=== PATIENT | female | born 1970 | race Caucasian/White ===

== ENCOUNTER → 2020-03-04 12:14 | Outpatient (BNVA) | payer BC, SELFPAY | PROVIDERS: Family Provider Nurse Practitioner Family; PCP Nurse Practitioner Family; Visit Provider Family Medicine | DX: E11.9 Type 2 diabetes mellitus without complications (principal); R61 Generalized hyperhidrosis; Z12.31 Encounter for screening mammogram for malignant neoplasm of breast; F32.4 Major depressive disorder, single episode, in partial remission; I10 Essential (primary) hypertension; N63.0 Unspecified lump in unspecified breast | CPT/HCPCS: 80053; 80061; 83036; 84443 ==

== ENCOUNTER → 2020-05-19 12:01 | Outpatient (BNVA) | payer OTHER, SELFPAY | PROVIDERS: Family Provider Nurse Practitioner Family; PCP Nurse Practitioner Family; Visit Provider Nurse Practitioner Family | DX: Z20.828 Contact with and (suspected) exposure to other viral communicable diseases (principal) | CPT/HCPCS: 87635 ==

== ENCOUNTER → 2020-09-30 15:10 | Outpatient (BNVA) | payer OTHER, SELFPAY | PROVIDERS: Family Provider Nurse Practitioner Family; PCP Nurse Practitioner Family; Visit Provider Nurse Practitioner Family | DX: Z20.828 Contact with and (suspected) exposure to other viral communicable diseases (principal); J98.8 Other specified respiratory disorders | CPT/HCPCS: 87635 ==

== ENCOUNTER → 2020-11-04 10:17 | Outpatient (BNVA) | payer SELFPAY | PROVIDERS: Family Provider Nurse Practitioner Family; PCP Nurse Practitioner Family; Visit Provider Family Medicine | DX: I10 Essential (primary) hypertension (principal); F32.9 Major depressive disorder, single episode, unspecified; E55.9 Vitamin D deficiency, unspecified; E11.9 Type 2 diabetes mellitus without complications; R07.89 Other chest pain; R07.9 Chest pain, unspecified; I25.119 Atherosclerotic heart disease of native coronary artery with unspecified angina pectoris; Z68.35 Body mass index [BMI] 35.0-35.9, adult; F17.210 Nicotine dependence, cigarettes, uncomplicated | CPT/HCPCS: 80053; 80061; 83036; 84443 ==

== ENCOUNTER 2020-12-11 08:06 | Outpatient (CLI) | payer SELFPAY ==
[2020-12-11 08:12] VITALS: BMI 35.2
--- NOTE | 2020-12-11 08:28 | ECG_ITS ---
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 The perfusion scan will be documented separately. DATA: Baseline heart rate was 73 beats per minute. Baseline blood pressure was 166/97 millimeters of mercury. Target heart rate was 170. Maximum heart rate achieved was 112. which was 65 % of the predicted target heart rate. Maximum blood pressure was 176/97 millimeters of mercury. The reason for ending the test was completion of the protocol. The patient did not experience any symptoms. ELECTROCARDIOGRAM: BASELINE: Sinus rhythm. Normal axis. Left ventricle hypertrophy, nonspecific inferolateral ST changes After Lexiscan injection, no ST-T changes suggestive of ischemic noted. No arrhythmia noted. CONCLUSION: Please note due to baseline abnormality of the EKG specificity and sensitivity of the EKG portion of LexiScan MIBI stress test will be low 1. EKG not suggestive of ischemia 2. Lexiscan injection unremarkable. 3. Perfusion scan will be documented separately. Electronically Signed On 12-11-2020 20:48:59 CDT by ANABEL DEGROOT [id number]
--- NOTE | 2020-12-11 08:29 | NMCV_ITS ---
NM russell perf SPECT r/s* [id number] Nalini Vieyra Age: 50 Gender: F : 1970 Exam Date: 12/11/2020 09:23 Ordering Phys: Izzy Degroot MD ([email or web address]) Technologist: COLIN Xavier Exam Location: [facility] Indications: CP, SOB STRESS TEST [facility] IMAGE PROTOCOL Rest/Stress 1 Lexiscan Day Radiopharmaceutical Dose (mCi) Administration Site Administered by Rest: Tc-99m 10.7 IV COLIN Xavier Sestamibi Stress:Tc-99m 32.7 IV COLIN Jon Sestamibi Rest: 11-Dec-2020 60 Discovery 630 Stress: 11-Dec-2020 45 Discovery 630 0.4mg Lexiscan. Images obtained in supine and prone position. SPECT RESULTS Technical Quality: Good Raw Data Analysis: Breast attenuation Image Corrections: No attenuation or motion correction applied Summed Stress Score: 0 Summed Rest Score: 1 Summed Difference Score: 0 PERFUSION FINDINGS Large area of patchy decreased tracer uptake noted in basal to distal anterior wall on both rest and stress images which showed medium-sized area of moderate reversibility in mid to distal segment suggestive of old myocardial infarction surrounded by medium-sized area for moderate ischemia in LAD segment. FUNCTIONAL RESULTS (calculated via Gated SPECT) Stress Image LV EF (%): 56 Stress EDV (mL):124 TID: 0.91 Stress ESV (mL):55 Rest Image LV EF (%): 56 FUNCTIONAL FINDINGS: There is normal left ventricular systolic function. IMPRESSIONS Large area of possible old myocardial infarction versus scarring noted in basal to distal anterior wall surrounded by medium-sized area of moderate ischemia in the LAD territory. No significant wall motion abnormality. Cannot rule out artifact. Clinical correlation advised. EKG segment will be documented separately. Izzy Degroot MD (Electronically Signed) Final Date: 15 December 2020 09:53 S
[2020-12-11] MEDS: regadenoson 0.4 Mg/5 ml Syringe IVP (10:15)
[2020-12-11 10:16] VITALS: BP 176/94; PULSE 100
== END 2020-12-11 08:07 | disposition home or self-care (01) ==
LOC: CDL 08:09
PROVIDERS: PCP Family Medicine; Visit Provider Internal Medicine Cardiovascular Disease
DX: R07.9 Chest pain, unspecified (principal); I25.9 Chronic ischemic heart disease, unspecified
CPT/HCPCS: 78452; 93017; A9500; J2785

== ENCOUNTER 2020-12-16 12:47 | Inpatient (IN) | payer SELFPAY ==
[2020-12-16] VITALS (12 sets, daily range): BP systolic 140–185; BP diastolic 87–118; PULSE 73–92; RESP 14–24; TEMP 36.8; O2SAT 89–96; BMI 35.2
--- NOTE | 2020-12-16 13:14 | XRR_ITS ---
PROCEDURE INFORMATION: Exam: XR Chest Exam date and time: 12/16/2020 1:39 PM Age: 50 years old Clinical indication: Shortness of breath; Additional info: Chest TECHNIQUE: Imaging protocol: XR of the chest. Views: 1 view. COMPARISON: CR Chest 1 [place] [id number] 06/13/2018 10:59 AM FINDINGS: Lungs: There is no pulmonary vascular congestion. There is no evidence of focal parenchymal consolidation. Pleural spaces: There are no pleural effusions. There is no evidence of pneumothorax. Heart/Mediastinum: The cardiac silhouette is within normal limits. Bones/joints: No acute osseous abnormality is identified. XR/XR chest 1V portable [id number] IMPRESSION: No acute cardiopulmonary disease identified.
--- NOTE | 2020-12-16 13:14 | ECG_ITS ---
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1970 Requested By: Dk Zavaleta Order Number: [id number] Reading MD: ANABEL STACK Measurements Intervals [place] Rate: 91 P: 59 DE: 178 QRS: 52 QRSD: 87 T: 50 QT: 371 QTc: 458 Interpretive Statements SINUS RHYTHM POSSIBLE LEFT ATRIAL ENLARGEMENT [-0.1mV P WAVE IN V1/V2] NONSPECIFIC ST & T-WAVE ABNORMALITY Compared to ECG 06/13/2018 21:00:53 Sinus arrhythmia no longer present T-wave abnormality still present Electronically Signed On 12-16-2020 23:39:54 CDT by ANABEL STACK [id number] f
[2020-12-16 13:31] LABS: Basophils % 0.4 %; Eosinophils # 0.2 10^3/uL (0.0-0.8); Eosinophils % 2.5 %; Hemoglobin 15.4 g/dL (11.5-15.3); Lymphocytes # 3.4 10^3/uL (0.8-4.8); Lymphocytes % 36.6 %; Mean Corpuscular HGB Conc 33.5 g/dL (30.0-36.0); Mean Corpuscular Volume 89.5 fL (81-99); Mean Platelet Volume 9.7 fL (7.4-10.4); Monocytes # 0.5 10^3/uL (0.2-0.9); Neutrophils # 5.06 10^3/uL (1.8-7.7); Neutrophils % 55.3 %; Nucleated Red Blood Cells % 0 %; Platelet Count 240 10^3/cmm (130-400); Red Blood Count 5.14 10^6/uL (4.1-5.3); Red Cell Distribution Width 12.8 % (12.1-15.1); White Blood Count 9.2 10^3/uL (4.0-10.0)
[2020-12-16 13:56] LABS: Alanine Aminotransferase 46 U/L (0-33); Albumin Level 4.5 g/dL (3.5-5.2); Alkaline Phosphatase 94 IU/L (35-105); Anion Gap 16.4 (5-19); Aspartate Amino Transferase 38 U/L (0-32); Blood Urea Nitrogen 10 mg/dL (6-20); Calcium 8.8 mg/dL (8.5-10.5); Carbon Dioxide 24 mmol/L (22-29); Chloride 103 mmol/L (98-107); Glomerular Filtration Rate 88.6 mL/min (90-130); Glucose 188 mg/dL (65-115); Osmolality Calculated 292 mOsm/kg (285-295); Potassium 4.4 mmol/L (3.5-5.1); Sodium 139 mmol/L (136-145); Total Bilirubin 0.3 mg/dL (0.15-1.2); Total Protein 6.5 g/dL (6.6-8.7)
[2020-12-16 13:57] LABS: Troponin(5th) Baseline 9 ng/L (0-10)
[2020-12-16] MEDS: aspirin 81 mg Chew Tablet 324 MG PO (14:05)
[2020-12-16] MEDS: nitroglycerin 1 gm/inch oint Pkt 1 INCH TOPICAL ×2 (14:05→21:16)
[2020-12-16] MEDS: enoxaparin 100 mg/mL Syringe 90 MG SUBCUT (14:05)
[2020-12-16] MEDS: metoprolol tartrate 25 mg Tablet PO (14:06)
--- NOTE | 2020-12-16 14:26 | ED_ITS ---
HPI - Chest Pain General: Chief Complaint: Chest Pain Stated Complaint: CP, SOB Time Seen by Provider: 12/16/20 13:03 History of Present Illness: HPI narrative: 50-year-old female with a history of diabetes and known history of coronary disease. Last week she had a stress test reviewing the old records it looks like it was positive with some areas of ischemia about the old infarct. 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 Eventually she took a nitro she went to her primary care doctor's office and took another nitro while there after the second nitro she had relief of her chest pain. She is advised to present to the emergency room. After reviewing her stress test and her history she was given aspirin 325 mg as well as Lovenox and an extra dose of metoprolol as she was still mildly tachycardic. Additionally she was given topical nitro. She is resting comfortably now with no chest pain. MD complaint: chest pain Pertinent past history: coronary artery disease, prior [place] and [employer] Onset (ago): hour(s) Timing of current episode: episodic Prior episodes: Yes Onset: during rest Pain location: substernal and left chest Pain radiation: neck and left shoulder Severity: moderate Quality: tightness, aching and heaviness Relieving factors: nitroglycerin and rest Exacerbating factors: exertion Associated symptoms: Reports dyspnea and nausea; Deny abdominal pain, diaphoresis, fever(s), leg edema, palpitations, sense of impending doom, syncope or vomiting Treatment prior to arrival: nitroglycerin Review of Systems Const: Denies: fever(s) or diaphoresis ENMT: Denies: throat pain, ear or mastoid pain, nasal discharge or nasal congestion Card: Denies: palpitations or syncope Resp: Reports: dyspnea GI: Reports: nausea; Denies: abdominal pain or vomiting : Denies: flank pain, difficulty voiding, dysuria, urinary frequency or urinary urgency Skin/Breast: Denies: rash or pruritus PFSH ED PFSH: Medical History Chest pain due to CAD Coronary artery disease stent to LAD and RCA 04/2016 RUSS Martin Diabetes Essential hypertension GERD (gastroesophageal reflux disease) History of TIA (transient ischemic attack) Myocardial infarction Smoking addiction Family History Father Hypertension CAD (coronary artery disease), Onset Age: 32 [place] and CABG Diabetes Brother CAD (coronary artery disease), Onset Age: 31 [place] Sister Family history of premature coronary artery disease Hypothyroidism Social History Smoking and tobacco status: current some day smoker cigarettes Packs smoked per day: 1 Years cigarettes smoked: 20 Second hand smoke exposure: Yes Alcohol intake: never Household members: spouse Marital status: Current occupational status: employed History of recent travel: No Current gender identity: Female Physical Exam Const: COMMON NORMALS: no acute distress GENERAL APPEARANCE: cooperative and comfortable ORIENTATION/CONSCIOUSNESS: Yes awake, Yes oriented to person, Yes oriented to place and Yes oriented to time Eye: COMMON NORMALS: Equal, round and reactive pupils present, EOMs intact bi laterally, conjunctivae normal and no scleral icterus CONJUNCTIVA: Yes conjunctivae normal PUPIL: Yes Equal, round and reactive pupils present Neck/C-Spine: COMMON NORMALS: full ROM, no lymphadenopathy, supple and no JVD Lymph: LYMPHATIC: no lymphadenopathy noted and no lymphedema noted Resp: COMMON NORMALS: normal respiratory effort, No retractions, No use of accessory muscles and clear to auscultation bilaterally AUSCULTATION: clear to auscultation bilaterally Cardio: COMMON NORMALS: no JVD, regular rate, regular rhythm and No murmurs present (Cardio) RATE: regular rate RHYTHM: regular rhythm GI: COMMON NORMALS: Soft to palpation and No hepatosplenomegaly present AUSCULTATION: Yes normoactive bowel sounds PALPATION: Yes Soft to palpation, No Tenderness to palpation present (GI), No Guarding due to palpation present (GI) and Yes No hepatosplenomegaly present Extremity: COMMON NORMALS: normal to inspection, capillary refill normal, no clubbing, cyanosis or edema, no calf tenderness and no pedal edema Neuro: SENSORIUM/ORIENTATION: Yes oriented to person, Yes oriented to place and Yes oriented to time Skin: COMMON NORMALS: no rashes or lesions noted GENERAL SKIN EXAM: no rashes or lesions noted Course Vital Signs: Vital signs: Vital Signs Temperature 98.6 F 12/17/20 12:16 Pulse Rate 58 L 12/17/20 12:16 Respiratory Rate 19 H 12/17/20 12:16 Blood Pressure 121/90 12/17/20 12:16 Pulse Oximetry 92 12/17/20 12:16 MDM - Chest Pain MDM Narrative: Medical decision making narrative: Patient having unstable angina had a recent positive stress test will admit given aspirin Lovenox Nitropaste for blood pressure consult cardiology orders have been written Lab Data: Attestation: I reviewed the patient's lab results. Labs: Lab Results 12/16/20 12/16/20 12/16/20 Range/Units 13:20 13:20 13:20 WBC 9.2 (4.0-10.0) 10^3/ uL RBC 5.14 (4.1-5.3) 10^6/u L Hgb 15.4 H (11.5-15.3) g/dL Hct 46.0 (37.0-47.0) % MCV 89.5 (81-99) fL MCH 30.0 (28.0-34.0) pg MCHC 33.5 (30.0-36.0) g/dL RDW 12.8 (12.1-15.1) % Plt Count 240 (130-400) 10^3/c mm MPV 9.7 (7.4-10.4) fL Neut % (Auto) 55.3 % Lymph % (Auto) 36.6 % Crowley % (Auto) 5.0 % Eos % (Auto) 2.5 % Baso % (Auto) 0.4 % Neut # (Auto) 5.06 (1.8-7.7) 10^3/u L Lymph # (Auto) 3.4 (0.8-4.8) 10^3/u L Crowley # (Auto) 0.5 (0.2-0.9) 10^3/u L Eos # (Auto) 0.2 (0.0-0.8) 10^3/u L Baso # (Auto) 0.0 (0.0-0.1) 10^3/u L Nucleated RBC % (a uto) 0 % Nucleated RBCs # 0.0 /100WBC Sodium 139 (136-145) mmol/L Potassium 4.4 (3.5-5.1) mmol/L Chloride 103 (98-107) mmol/L Carbon Dioxide 24 (22-29) mmol/L Anion Gap 16.4 (5-19) BUN 10 (6-20) mg/dL Creatinine 0.7 (0.5-0.9) mg/dL GFR Calculation 88.6 L (90-130) mL/min Glucose 188 H (65-115) mg/dL Calculated Osmolal ity 292 (285-295) mOsm/k g Calcium 8.8 (8.5-10.5) mg/dL Total Bilirubin 0.3 (0.15-1.2) mg/dL AST 38 H (0-32) U/L ALT 46 H (0-33) U/L Alkaline Phosphata se 94 (35-105) IU/L Troponin T Baselin e 9 (0-10) ng/L Total Protein 6.5 L (6.6-8.7) g/dL Albumin 4.5 (3.5-5.2) g/dL Globulin 2.0 (1.3-4.6) g/dL Discharge Plan Discharge Patient Disposition: Home Clinical Impression: Unstable angina pectoris, Diabetes, Abnormal stress test, Coronary artery disease Condition: Stable Discharge Orders: Discharge Order (Routine); Ordered 12/17/20 Ordered By: Trice Ortega Discharge Diet: Usual diet and Cardiac Discharge Activity: Resume usual activity Coding Level of Care Code 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
--- NOTE | 2020-12-16 15:14 | ECG_ITS ---
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
--- NOTE | 2020-12-16 15:41 | P.HP_ITS ---
Providers/Chief Complaint Admitting Physician: Trice Ortega MD Primary Care Provider: Shital Capps MD Chief Complaint: CP, SOB History of Present Illness Nalini Vieyra is a 50 year old female with a past medical history of hypertension, which is poorly controlled, diabetes, chronic smoking, following with cardiology as an outpatient for chest pain, underwent stress test on December 11, 2020 which showed a large area of possible old [place] versus scarring in the basal to distal anterior wall surrounded by medium area of moderate ischemia in the LAD territory. She presented today with sudden onset chest pain that started at rest. Described as a sensation of squeezing chest pain, 6-7 in intensity, radiating upwards to her jaw, relieved with nitroglycerin. Stated feeling short of breath while the episode was happening. Past history of CAD present. EKG with non specific ST-T wave changes. Baseline troponin at 9 Review of Systems General: Reports: 10 or more systems reviewed and unremarkable except in HPI and below Const: Denies: fever(s), chills or body aches Eyes: Denies: change in vision, blurry vision or photophobia ENMT: Reports: hoarseness; Denies: throat pain, enlarged tonsils, odynophagia or nasal congestion Card: Denies: chest pain, palpitations, irregular heart rhythm, edema, swelling of feet/ankles, lightheadedness, pre-syncope, dyspnea on exertion or orthopnea Resp: Denies: dyspnea, productive cough, non-productive cough, wheezing, strid or, pain on inspiration, change in phlegm color, hemoptysis or chest congestion GI: Denies: abdominal pain, nausea, vomiting, hematemesis, coffee ground emesis, dysphagia, heartburn, diarrhea, constipation, GI cramping, change in stool character, hematochezia or melena : Denies: flank pain, difficulty voiding, dysuria, urinary frequency, urinary urgency, urinary hesitancy or hematuria Musc: Denies: neck pain, back pain, extremity pain, joint swelling, joint warmth or deformity Neuro: Denies: headache(s), numbness in extremities, weakness in extremities, sensory changes, difficulty walking, frequent falls, dizziness, vertigo, behavioral changes, Slurred speech present or seizure-like activity Psych: Denies: anxiety, depression, suicidal ideation or homicidal ideation Endo: Denies: polyuria, polydipsia, tired all the time, cold intolerance or hot flashes Robbie/Lymph: Denies: easy bruising or easy bleeding Medications/Allergies Home Medications Medication Instructions Recorded Confirmed Last Taken Type nitroglycerin 0.4 mg sublingual See Rx Instructions .ROUTE 11/04/20 12/16/20 12/16/20 Rx tablet .COMPLEX #25 tab cyclobenzaprine 10 mg tablet See Rx Instructions PO TID PRN #20 11/14/20 12/16/20 Unknown Rx tab Lexapro 20 mg PO DAILY@219912/16/20 12/16/20 12/15/20 History aspirin 81 mg PO DAILY@219912/16/20 12/16/20 12/15/20 History atorvastatin 40 mg PO DAILY@219912/16/20 12/16/20 12/15/20 History clopidogrel 75 mg PO DAILY@12/16/20 12/16/20 12/16/20 History empagliflozin [Jardiance] 25 mg PO DAILY@12/16/20 12/16/20 12/16/20 History ergocalciferol (vitamin D2) 1,250 mcg PO Q7D 12/16/20 12/16/20 12/14/20 History glipizide 10 mg PO BID@12/16/20 12/16/20 12/16/20 History isosorbide mononitrate 15 mg PO BID@12/16/20 12/16/20 12/16/20 History metformin 1,000 mg PO BID@12/16/20 12/16/20 12/16/20 History metoprolol succinate 100 mg PO DAILY@219912/16/20 12/16/20 12/15/20 History montelukast 10 mg PO DAILY@219912/16/20 12/16/20 12/15/20 History oxybutynin chloride 15 mg PO DAILY@219912/16/20 12/16/20 12/15/20 History pantoprazole 40 mg PO DAILY@12/16/20 12/16/20 12/16/20 History Allergies Allergy/AdvReac Type Severity Reaction Status Date / Time metformin Allergy diarrhea Verified 12/16/20 13:05 PFSH Acute PFSH: Medical History Diabetes Essential hypertension GERD (gastroesophageal reflux disease) History of TIA (transient ischemic attack) Myocardial infarction Smoking addiction Family History Father Hypertension CAD (coronary artery disease), Onset Age: 32 [place] and CABG Diabetes Brother CAD (coronary artery disease), Onset Age: 31 [place] Sister Family history of premature coronary artery disease Hypothyroidism Social History Smoking and tobacco status: current some day smoker cigarettes Packs smoked per day: 1 Years cigarettes smoked: 20 Second hand smoke exposure: Yes Alcohol intake: never Household members: spouse Marital status: Current occupational status: employed History of recent travel: No Current gender identity: Female Vitals/I&O/Wt Last Vital Signs Pulse 91 12/16/20 14:51 Resp 16 12/16/20 14:49 BP 166/118 12/16/20 14:49 Pulse Ox 95 12/16/20 14:49 Weight last 48 hrs Weight 90.265 kg Physical Exam Narrative: EXAM NARRATIVE: GENERAL: Awake, alert, oriented, in no acute distress. Daily HEENT: Normocephalic, atraumatic, PERRLA. [] CHEST: Clear to auscultation bilaterally. [] CVS: S1, S2 normal. No murmur, rubs, gallops. Peripheral pulses palpable. [] ABDOMEN: Soft, nontender. Nondistended. Bowel sounds heard. [] NEUROVASCULAR: Awake, alert. Power 5/5 all extremities. DTR+ [] EXTREMITIES: No edema. [] Data : 12/16/20 13:20 12/16/20 13:20 A&P Assessment and plan (1) Chest pain due to CAD: Status: Acute (2) Abnormal stress test: Status: Acute Additional A&P Information Patient with multiple cardiac risk factors as stated above in HPI, presents today complaining of chest pain in the setting of having had an abnormal stress test within the past week. Troponin baseline is negative, 2-hour delta is pending at this time. EKG with nonspecific ST-T wave changes, which are appearing to be old. Given the recently abnormal stress test with ongoing chest pain, will consult cardiology for possible angiogram. N.p.o. post midnight. Aspirin Plavix to continue in the interim. Insulin sliding scale for blood sugar management, hold metoprolol and glipizide. Hypertension, uncontrolled at home, SBP ranging 1 60-1 70 systolic at home. 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
[2020-12-16 15:54] LABS: Troponin 5 2HR 9.77 ng/L (0-10); Troponin 5 2HR Delta 0.77 ABS# (0-10)
--- NOTE | 2020-12-16 16:40 | PC.NURSE ---
received report from ER upon reviewing orders noted patient was diabetic and no orders for control was placed called Dr alva telephone instructions received from dr alva for a moderate sliding scale novolog with meals and at bedtime; sheng kruse
[2020-12-16 17:21] LABS: Glucose Point of Care 239 mg/dL (70-110)
--- NOTE | 2020-12-16 19:14 | P.CONIM_ITS ---
Providers/Reason For Consult Consulting Physican/Specialty*: Cardiology Reason for Consult*: Unstable angina, abnormal stress test Attending Physician: Trice Ortega MD Primary Care Provider: Shital Capps MD History of Present Illness History of Present Illness Nalini Vieyra is a 50 year old female who is known to me from my clinic recently underwent stress test which was positive for moderate ischemia in the LAD territory despite optimization of medicine was admitted with worsening of chest pain and shortness of breath suspicious for unstable angina. It is the reason I been asked to assist in her care. Patient past medical history significant for hypertension hyperlipidemia coronary disease diabetes mellitus and prior stents placed few years ago. For the past few months patient has been complaining of worsening of shortness of breath and chest pain on exe rtion despite of optimization of medicine. It is the reason she underwent stress test which turned out to be abnormal. We were in the process of scheduling her for left heart cath when patient developed worsening of chest pain and pressure with increased frequency and duration. Currently patient denies any chest pain. She has been treated as per ACS protocol and admitted to rule in for acute current syndrome. Twelve-lead EKG remains unchanged. Review of Systems General: Reports: 10 or more systems reviewed and unremarkable except in HPI and below Const: Denies: fever(s), chills or body aches Eyes: Denies: change in vision, blurry vision or photophobia ENMT: Reports: hoarseness; Denies: throat pain, enlarged tonsils, odynophagia or nasal congestion Card: Denies: chest pain, palpitations, irregular heart rhythm, edema, swelling of feet/ankles, lightheadedness, pre-syncope, dyspnea on exertion or orthopnea Resp: Denies: dyspnea, productive cough, non-productive cough, wheezing, s tridor, pain on inspiration, change in phlegm color, hemoptysis or chest congestion GI: Denies: abdominal pain, nausea, vomiting, hematemesis, coffee ground emesis, dysphagia, heartburn, diarrhea, constipation, GI cramping, change in stool character, hematochezia or melena : Denies: flank pain, difficulty voiding, dysuria, urinary frequency, urinary urgency, urinary hesitancy or hematuria Musc: Denies: neck pain, back pain, extremity pain, joint swelling, joint warmth or deformity Neuro: Denies: headache(s), numbness in extremities, weakness in extremities, sensory changes, difficulty walking, frequent falls, dizziness, vertigo, behavioral changes, Slurred speech present or seizure-like activity Psych: Denies: anxiety, depression, suicidal ideation or homicidal ideation Endo: Denies: polyuria, polydipsia, tired all the time, cold intolerance or hot flashes Robbie/Lymph: Denies: easy bruising or easy bleeding Meds/Allergies Home Medications and Allergies Home Medications Medication Instructions Recorded Confirmed Last Taken Type nitroglycerin 0.4 mg sublingual See Rx Instructions .ROUTE 11/04/20 12/16/20 12/16/20 Rx tablet .COMPLEX #25 tab cyclobenzaprine 10 mg tablet See Rx Instructions PO TID PRN #20 11/14/20 12/16/20 Unknown Rx tab Lexapro 20 mg PO DAILY@219912/16/20 12/16/20 12/15/20 History aspirin 81 mg PO DAILY@219912/16/20 12/16/20 12/15/20 History atorvastatin 40 mg PO DAILY@219912/16/20 12/16/20 12/15/20 History clopidogrel 75 mg PO DAILY@12/16/20 12/16/20 12/16/20 History empagliflozin [Jardiance] 25 mg PO DAILY@12/16/20 12/16/20 12/16/20 History ergocalciferol (vitamin D2) 1,250 mcg PO Q7D 12/16/20 12/16/20 12/14/20 History glipizide 10 mg PO BID@12/16/20 12/16/20 12/16/20 History isosorbide mononitrate 15 mg PO BID@12/16/20 12/16/20 12/16/20 History metformin 1,000 mg PO BID@12/16/20 12/16/20 12/16/20 History metoprolol succinate 100 mg PO DAILY@219912/16/20 12/16/20 12/15/20 History montelukast 10 mg PO DAILY@219912/16/20 12/16/20 12/15/20 History oxybutynin chloride 15 mg PO DAILY@219912/16/20 12/16/20 12/15/20 History pantoprazole 40 mg PO DAILY@08 12/16/20 12/16/20 12/16/20 History Allergies Allergy/AdvReac Type Severity Reaction Status Date / Time metformin Allergy diarrhea Verified 12/16/20 13:05 Current Medications Current Medications Generic Name Dose Route Start Last Admin Trade Name Gerardoq PRN Reason Stop Dose Admin Insulin Aspart 0 unit 12/16/20 18:00 12/16/20 17:51 Insulin Aspart 100 Unit/1 Ml SUBCUT 8 unit WM&BEDTIME JENAE Administration Protocol Nitroglycerin 1 inch 12/16/20 16:15 12/16/20 17:33 Nitroglycerin 1 Gm/Inch Oint Pkt TOPICAL Not Given Q6H JENAE PFSH Acute PFSH: Medical History Diabetes Essential hypertension GERD (gastroesophageal reflux disease) History of TIA (transient ischemic attack) Myocardial infarction Smoking addiction Family History Father Hypertension CAD (coronary artery disease), Onset Age: 32 PA and CABG Diabetes Brother CAD (coronary artery disease), Onset Age: 31 [place] Sister Family history of premature coronary artery disease Hypothyroidism Social History Smoking and tobacco status: current some day smoker cigarettes Packs smoked per day: 1 Years cigarettes smoked: 20 Second hand smoke exposure: Yes Alcohol intake: never Household members: spouse Marital status: Current occupational status: employed History of recent travel: No Current gender identity: Female Dietary Habits: Current diet type/program: regular Caffeine: Yes Caffeine intake frequency: carbonated beverages Number of carbonated beverage servings: 1 Vitals/I&O/Wt Last Vital Signs Pulse 75 12/16/20 17:54 Resp 19 H 12/16/20 17:12 BP 151/95 12/16/20 17:12 Pulse Ox 94 12/16/20 17:54 Weight last 48 hrs Weight 199 lb Physical Exam Narrative: EXAM NARRATIVE: GENERAL: Patient is alert, awake and oriented x3. NECK: No jugular vein distension. HEENT: No cyanosis. No icterus. No pallor. HEART: Regular S1 and S2. No murmur, rub or gallop. LUNGS: Clear to auscultate bilaterally. ABDOMEN: Soft, nontender and nondistended. Positive bowel sounds. No guarding, rebound or tenderness. CENTRAL NERVOUS SYSTEM: Grossly nonfocal. EXTREMITIES: Lower extremities without edema bilaterally. A&P Assessment and plan (1) Abnormal stress test: Status: Acute (2) Chest pain due to CAD: Patient chest pain along with shortness of breath in the setting of abnormal stress test is suspicious for unstable angina despite of optimization of medicine. Patient was admitted with chest pain to rule out for acute coronary syndrome. Continue aspirin statin beta-marlene nitroglycerin and anticoagulation. We will proceed with left heart cath/PCI if indicated tomorrow morning. Patient has been explained all risk benefit and already for the procedure. She understand the risk for major minor bleed stroke arrhythmia urgent emergent surgery and worse case scenario . She would like to proceed with it. Status: Acute (3) Coronary artery disease: Patient has prior history of coronary artery disease. Worsening of chest pain is angina:. Patient has stent to LAD and RCA at [facility] in 2016, proceed as above Status: Acute Qualifiers: Coronary Disease-Associated Artery/Lesion type: [place] artery [place] vs. transplanted heart: [place] heart Associated angina: with unspecified angina Qualified Code(s): I25.119 - Atherosclerotic heart disease of [place] coronary artery with unspecified angina pectoris (4) Essential hypertension: Not well controlled we will optimize medicine Status: Acute Consult Attestations Medical Necessity Statement: Patient require continuation hospitalization for above defined care. 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 transplanted heart: [place] heart Associated angina: with unspecified angina Essential hypertension I10
[2020-12-16 19:57] LABS: Glucose Point of Care 149 mg/dL (70-110)
[2020-12-16 20:03] LABS: Troponin 5 6HR 11.67 ng/L (0-10); Troponin 5 6HR Delta 2.67 ng/L (0-12)
[2020-12-16] MEDS: metoprolol succinate ER (24 HR) 100 mg Tablet PO (21:11)
[2020-12-16] MEDS: atorvastatin 40 mg Tablet PO (21:11)
[2020-12-16] MEDS: escitalopram 10 mg Tablet 20 MG PO (21:11)
[2020-12-16] MEDS: montelukast sodium 10 mg Tablet PO (21:12)
[2020-12-16] MEDS: oxybutynin chloride XL 5 MG TABLET 15 MG PO (21:12)
[2020-12-16] MEDS: aspirin 81 mg EC Tablet PO (21:12)
--- NOTE | 2020-12-16 22:11 | PC.NURSE ---
Report received from Melania Villanueva Patient is resting in bed with eyes closed. Patient voices no complaints of pain or other needs at this time. Nurse will continue to monitor.
[2020-12-17] VITALS (16 sets, daily range): BP systolic 121–170; BP diastolic 78–115; PULSE 55–74; RESP 16–24; TEMP 37; O2SAT 90–94
[2020-12-17 04:56] LABS: Basophils % 0.4 %; Eosinophils # 0.2 10^3/uL (0.0-0.8); Eosinophils % 2.4 %; Hematocrit 45.8 % (37.0-47.0); Hemoglobin 14.6 g/dL (11.5-15.3); Lymphocytes # 3.8 10^3/uL (0.8-4.8); Lymphocytes % 39.9 %; Mean Corpuscular HGB Conc 31.9 g/dL (30.0-36.0); Mean Corpuscular Hemoglobin 29.9 pg (28.0-34.0); Mean Corpuscular Volume 93.7 fL (81-99); Mean Platelet Volume 9.7 fL (7.4-10.4); Monocytes # 0.6 10^3/uL (0.2-0.9); Monocytes % 6.1 %; Neutrophils # 4.91 10^3/uL (1.8-7.7); Nucleated Red Blood Cells % 0 %; Platelet Count 225 10^3/cmm (130-400); Red Blood Count 4.89 10^6/uL (4.1-5.3); Red Cell Distribution Width 12.9 % (12.1-15.1); White Blood Count 9.6 10^3/uL (4.0-10.0)
[2020-12-17 05:09] LABS: Alanine Aminotransferase 43 U/L (0-33); Albumin Level 3.8 g/dL (3.5-5.2); Alkaline Phosphatase 84 IU/L (35-105); Anion Gap 12.5 (5-19); Aspartate Amino Transferase 39 U/L (0-32); Blood Urea Nitrogen 14 mg/dL (6-20); Calcium 8.5 mg/dL (8.5-10.5); Carbon Dioxide 26 mmol/L (22-29); Chloride 103 mmol/L (98-107); Globulin 2.4 g/dL (1.3-4.6); Glomerular Filtration Rate 105.8 mL/min (90-130); Glucose 181 mg/dL (65-115); Osmolality Calculated 289 mOsm/kg (285-295); Potassium 4.5 mmol/L (3.5-5.1); Sodium 137 mmol/L (136-145); Total Bilirubin 0.3 mg/dL (0.15-1.2); Total Protein 6.2 g/dL (6.6-8.7)
[2020-12-17] MEDS: nitroglycerin 1 gm/inch oint Pkt 1 INCH TOPICAL (05:11)
[2020-12-17] MEDS: sodium chloride 0.9% 1,000 ML 50 ML IV (06:13)
[2020-12-17] MEDS: diphenhydrAMINE 50 mg Capsule PO (06:13)
[2020-12-17 06:49] LABS: Glucose Point of Care 199 mg/dL (70-110)
--- NOTE | 2020-12-17 06:56 | W.PM.OPSUD ---
Surgery/Procedure H&P Update DATE OF PROCEDURE: December 17, 2020 DATE H&P PERFORMED: 12/16/20 H&P UPDATE INFORMATION: I have reviewed H&P completed within last 30 days, I have examined patient prior to procedure and No changes to prior documentation PREOP DIAGNOSIS: Unstable angina, abnormal stress test PLANNED PROCEDURE: Operation Date: 12/17/20 07:00 Proposed Procedures p Cardiac Catheterization(Left) - Izzy Degroot MD PATIENT REASSESSED PRIOR TO SEDATION, WITH NO CHANGE NOTED: Yes PHYSICAL EXAM: alert, oriented x 3, clear to auscultation bilaterally and regular rate & rhythm AIRWAY EVAL/ANESTHESIA PLAN: ASA II, Risks, benefits & alternatives of sedation and/or procedure discussed and Patient agrees to continue as planned
--- NOTE | 2020-12-17 07:00 | XACV_ITS ---
Exam Room: [facility] Ht: 160 cm Wt: 90 kg BSA: 2.04 m2 Gender: Female : 1970 Any Known Allergies: Other Exam Priority: Routine Procedure(s): Procedure Description: Diagnostic procedure Diagnostic Cath Status: Elective Diagnostic Findings * LM has 0% stenosis. * mLAD: Mild 20% stenosis, VINCENT: 3 flow. * pCIRC: Mild 30% stenosis, VINCENT: 3 flow. * mRCA to dRCA: Mild 20% stenosis, VINCENT: 3 flow. * Coronary angiography shows right dominance. Conclusions 1. There is mild coronary artery disease with three vessel disease. Recommendations * Continue current medical management and risk factor modification. Clinical Evaluation EBL: 5mL-10mL Procedural Details Procedure Consent Obtained. Current Diagnosis : NSTEMI. Pre-Procedure Time Out. Identified patient by full name and date of as verbalized by the patient/guarantor. Does the consent match the physician's order: Yes. Accurate & Complete Informed Consent: Yes. Inpatient/Outpatient History & Physical on Chart: Yes. If H&P is completed, is and addenduem needed: No; If yes, is the addendum complete: N/A. Visualize and Verify Site with Patient/Guarantor: N/A. Relevant Radiology Images available: Yes. Pre-op teaching completed and patient verbalized understanding. The risks, benefits, and alternatives of sedation and/or procedure were discussed by physician. The patient agrees to continue. Procedure started. Correct patient, site and procedure confirmed by cath team. Current diagnosis: NSTEMI. PERRLA. 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 Lungs clear x 5 lobes. IV Site on Arrival: 18 gauge in the left anticubital. IV Fluids: 0.9% NaCl at KVO. 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 Pre Procedural Pulses: right radial was 3+. Oxygen started at 2liters/min via nasal canula. right groin was prepped with chloroprep then draped in the usual sterile fashion. right radial was prepped with chloroprep then draped in the usual sterile fashion. Physician notified. Baseline sample Acquired. HR: 57 BPM. [facility] Clinical Fraility Score: 3: Managing Well. 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 Chest Pain Symptom Assessment: Typical Angina Symptoms. Physician arrived. Cardiovascular Instability: No. Physician scrubbed in. Immediate Pre-Procedure Time Out. Correct Patient: Yes; Correct Procedure: Yes; Correct Site: Yes; Correct Patient Position: Yes; Correct Supplies: Yes; Dried Flammable Prep: Yes; Blood Products Available: NA;. Lidocaine 1% infiltrated to the right radial. Arterial access obtained. A 5 chinese TIG catheter in over wire. Multiple views taken of left coronary artery. Catheter redirected to the RCA. TR band placed. Hemostasis obtained. Post Procedure: Pulses reassessed and unchanged. PERRLA. 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 No VTE prophylaxis required. Medication's Wasted: Lidocaine 1% = 18 mL. Medication's Wasted: Nitro = 49.8 mg. Medication's Wasted: Heparin = 1000 units. Medication's Wasted: Other = versed 1 mg. Medication's Wasted: Other = fentanyl 50 mg. Total IV fluids: 43.2 mL. Contrast type used: Omnipaque 300 mgI/mL, 500 mL bottle. Contrast Material : Omnipaque 64 ml. Post-op diagnosis: patent stents no significant stenosis. Complications: none. Estimated blood loss: 5mL-10mL. Procedure completed. Patient transferred by wheelchair to 1st floor. A TR Band was successful obtaining hemostatsis at the Right Radial artery insertion site. Vital chart was stopped. Access Site Site: Right Radial artery Sheath Size: 6 Fr Hemostasis Method: TR Band Hemostasis Success: Successful Procedure Medications Start: 6:54 AM Stop: 6:54 AM Medication: Versed Amount: 1 mg Route: I.V. Start: 6:54 AM Stop: 6:54 AM Medication: Fentanyl Amount: 50 mcg Route: I.V. Start: 7:09 AM Stop: 7:09 AM Medication: Nitrogylcerin Amount: 200 mcg Route: I.A. Start: 7:10 AM Stop: 7:10 AM Medication: Heparin Amount: 5000 units Route: I.V. I, the attending physician, have reviewed and verified all procedure medications. Yes, all medications given per verbal order History/Risk Factors Hypertension: Yes Dyslipidemia: No Peripheral Arterial Disease (PAD): No Myocardial Infarction ([place]): Yes Obesity: No Renal Disease: No Tobacco Use: Current/Recent(w/in 1 year) Prior Interventions PCI: Yes CABG: No Valve Surgery: No Date of PCI: 04/20/2017 Report Signatures Finalized by Izzy Degroot MD on 12/31/2020 07:35 PM
--- NOTE | 2020-12-17 07:31 | PM.PN ---
Subjective Subjective: Interval history: Patient underwent left heart cath today. She was found to have patent previously placed stents without any significant obstruction. Medications: Reviewed: Yes Vitals/I&O/Wt Last Vital Signs Temp 98.6 F 12/17/20 04:00 Pulse 69 12/17/20 05:55 Resp 24 H 12/17/20 04:00 BP 170/96 12/17/20 04:00 Pulse Ox 94 12/17/20 04:00 Weight last 48 hrs Weight 199 lb Physical Exam Narrative: EXAM NARRATIVE: GENERAL: Patient is alert, awake and oriented x3. NECK: No jugular vein distension. HEENT: No cyanosis. No icterus. No pallor. HEART: Regular S1 and S2. No murmur, rub or gallop. LUNGS: Clear to auscultate bilaterally. ABDOMEN: Soft, nontender and nondistended. Positive bowel sounds. No guarding, rebound or tenderness. CENTRAL NERVOUS SYSTEM: Grossly nonfocal. EXTREMITIES: Lower extremities without edema bilaterally. Const: COMMON NORMALS: alert Resp: COMMON NORMALS: clear to auscultation bilaterally AUSCULTATION: clear to auscultation bilaterally Neuro: SENSORIUM/ORIENTATION: Yes alert Data : 12/17/20 04:12 12/17/20 04:12 A&P Assessment and plan (1) Abnormal stress test: Status: Acute (2) Chest pain due to CAD: Coronary angiogram did not show any significant stenosis most likely breast attenuation artifact on the stress test. Chest pain could stem from anxiety of the patient cannot rule out coronary spasm. Will continue to optimize her medicine. Once complete bedrest will discharge her today. Status: Acute (3) Coronary artery disease: Patient has prior history of coronary artery disease. Worsening of chest pain is angina:. Patient has stent to LAD and RCA at [facility] in 2016, proceed as above Status: Acute Qualifiers: Coronary Disease-Associated Artery/Lesion type: [place] artery [place] vs. transplanted heart: [place] heart Associated angina: with unspecified angina Qualified Code(s): I25.119 - Atherosclerotic heart disease of [place] coronary artery with unspecified angina pectoris (4) Essential hypertension: Stable and controlled. Status: Acute Attestations Medical Necessity Statement*: Status post coronary angiogram. Once complete bedrest we will discharge her today. 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 transplanted heart: [place] heart Associated angina: with unspecified angina Essential hypertension I10
[2020-12-17] MEDS: nicotine 14 mg Patch 1 PATCH TRANSDERMA (08:39)
[2020-12-17] MEDS: clopidogrel 75 mg Tablet PO (08:40)
[2020-12-17] MEDS: pantoprazole DR 40 mg Tablet PO (08:40)
--- NOTE | 2020-12-17 09:42 | PC.CHAP ---
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 plant operator helper visit [] Patient/Family/Request visit [] Outpatient visit [] Follow-up visit [] Physician referral [] Code/Alert [] Routine visit [] Staff referral [] Actively dying [x] Patient sleeping [] Family support [] [] Out of room [] Palliative care [] [] Receiving care in room [] Pre-surgical visit [] Trauma [] Long length of stay [] ICU visit [] Other: Relational/Emotional Strength [] Patient feels connected with others/family/visitors/staff [] Distress [] Loneliness/isolation [] Abandonment Spirituality of Patient [] Person of Carolyn [] Attends Pentecostalism of their Carolyn [] Believes in Prayer [] Reads Bible or Mormon materials [] There are Spiritual issues to be addressed Cvt Rn Interventions [x] Prayer [] Active listening [] Non-anxious presence [] Spiritual/emotional support [] Crisis/trauma care [] Spiritual counseling [] Bereavement support [] Provided bereavement packet [] Provided Bible/devotional materials [] Provided toy/stuffed animal, coloring book to patient or family member [] Provided Communion [] Anointing/[place] [] Salvation [x] Completed spiritual assessment [] Other: Impact on Illness or Injury [] Angry [] Fearful [] Anxious [] Often cries [] Exhaustion [] Unable to work [] Unable to attend alevism [] Unable to walk/stand [] Unable to read [] Unable to drive [] Unable to eat/drink [] Unable to sleep [] Unable to be with family [] Patient intubated [] Other: Summary Time spent with patient
[2020-12-17 11:14] LABS: Glucose Point of Care 228 mg/dL (70-110)
--- NOTE | 2020-12-17 19:25 | PM.DCS ---
Discharge Providers Date of Admission: 12/16/20 14:18 Date of Discharge: December 17, 2020 Attending Provider at Admission: Trice Ortega MD Attending Provider at Discharge: Trice Ortega MD Primary Care Provider: Shital Capps MD Diagnoses at Discharge Discharge Diagnosis (1) Abnormal stress test: Status: Acute (2) Chest pain due to CAD: Status: Acute (3) Coronary artery disease: Status: Acute Permanent problem details: stent to LAD and RCA 04/2016 [place] Qualifiers: Coronary Disease-Associated Artery/Lesion type: [place] artery [place] vs. transplanted heart: [place] heart Associated angina: with unspecified angina Qualified Code(s): I25.119 - Atherosclerotic heart disease of [place] coronary artery with unspecified angina pectoris (4) Essential hypertension: Status: Acute Reason for Visit Reason for Visit: YAMILET GAUTHIER Hospital Course Hospital Course Nalini Vieyra is a 50 year old female with a past medical history of hypertension, which is poorly controlled, diabetes, chronic smoking, following with cardiology as an outpatient for chest pain, underwent stress test on December 11, 2020 which showed a large area of possible old VT versus scarring in the basal to distal anterior wall surrounded by medium area of moderate ischemia in the LAD territory. She presented with sudden onset chest pain that started at rest. Described as a sensation of squeezing chest pain, 6-7 in intensity, radiating upwards to her jaw, relieved with nitroglycerin. 12 lead EKG without acute changes, troponins remained flat. Patient underwent left heart cath today. She was found to have patent previously placed stents without any significant obstruction. Most likely breast attenuation artifact on the stress test. Chest pain could stem from anxiety of the patient cannot rule out coronary spasm. Medical optimization was most appropriate in this setting. She was discharged home in stable condition. No further chest pain was reported during admission. 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 Discharge Data Data Completed and Pending: Completed Studies During Hospitalization Category Date Time Status XR chest 1V milagros ble [id number] Stat Exams 12/16/20 13:14 Completed Pending at discharge Category Date Time Status IDENTIFICATION TECHNICIAN request for service Routin e Exams 12/17/20 07:00 Ordered Labs from last 24 hours 12/17/20 12/17/20 12/17/20 11:10 06:28 04:12 WBC RBC Hgb Hct MCV MCH MCHC RDW Plt Count MPV Neut % (Auto) Lymph % (Auto) [place] % (Auto) Eos % (Auto) Baso % (Auto) Neut # (Auto) Lymph # (Auto) [place] # (Auto) Eos # (Auto) Baso # (Auto) Nucleated RBC % (a uto) Nucleated RBCs # Sodium 137 Potassium 4.5 Chloride 103 Carbon Dioxide 26 Anion Gap 12.5 BUN 14 Creatinine 0.6 GFR Calculation 105.8 Glucose 181 H POC Glucose 228 H 199 H Calculated Osmolal ity 289 Calcium 8.5 Total Bilirubin 0.3 AST 39 H ALT 43 H Alkaline Phosphata se 84 Troponin T Hi Sens 6Hr Troponin T Hi Sens 6Hr Delta Total Protein 6.2 L Albumin 3.8 Globulin 2.4 12/17/20 12/16/20 12/16/20 04:12 19:26 19:25 WBC 9.6 RBC 4.89 Hgb 14.6 Hct 45.8 MCV 93.7 MCH 29.9 MCHC 31.9 RDW 12.9 Plt Count 225 MPV 9.7 Neut % (Auto) 51.0 Lymph % (Auto) 39.9 [place] % (Auto) 6.1 Eos % (Auto) 2.4 Baso % (Auto) 0.4 Neut # (Auto) 4.91 Lymph # (Auto) 3.8 [place] # (Auto) 0.6 Eos # (Auto) 0.2 Baso # (Auto) 0.0 Nucleated RBC % (a uto) 0 Nucleated RBCs # 0.0 Sodium Potassium Chloride Carbon Dioxide Anion Gap BUN Creatinine GFR Calculation Glucose POC Glucose 149 H Calculated Osmolal ity Calcium Total Bilirubin AST ALT Alkaline Phosphata se Troponin T Hi Sens 6Hr 11.67 H Troponin T Hi Sens 6Hr Delta 2.67 Total Protein Albumin Globulin Vitals: Last Vital Signs Temp 98.6 F 12/17/20 12:16 Pulse 58 L 12/17/20 12:16 Resp 19 H 12/17/20 12:16 BP 121/90 12/17/20 12:16 Pulse Ox 92 12/17/20 12:16 Discharge Plan Discharge Patient Disposition: Home Condition: Stable Prescriptions: Continued nitroglycerin 0.4 mg tablet, sublingual See Rx Instructions .ROUTE .COMPLEX Qty: 25 RF: 0 cyclobenzaprine 10 mg tablet See Rx Instructions PO TID PRN (Reason: muscle spasm) Qty: 20 RF: 0 pantoprazole 40 mg Tablet,Delayed Release (Dr/Ec) 40 mg PO DAILY@08 RF: 0 ergocalciferol (vitamin D2) 1,250 mcg (50,000 unit) capsule 1,250 mcg PO Q7D RF: 0 atorvastatin 40 mg tablet 40 mg PO DAILY@2199 RF: 0 oxybutynin chloride 15 mg tablet extended release 24 hr 15 mg PO DAILY@2199 RF: 0 glipizide 10 mg tablet extended release 24hr 10 mg PO BID@ RF: 0 isosorbide mononitrate 30 mg tablet extended release 24 hr 15 mg PO BID@ RF: 0 metoprolol succinate 100 mg tablet extended release 24 hr 100 mg PO DAILY@2199 RF: 0 clopidogrel 75 mg tablet 75 mg PO DAILY@ RF: 0 aspirin 81 mg tablet,delayed release (DR/EC) 81 mg PO DAILY@2199 RF: 0 metformin 1,000 mg tablet 1,000 mg PO BID@ RF: 0 montelukast 10 mg tablet 10 mg PO DAILY@2199 RF: 0 Lexapro 20 mg tablet 20 mg PO DAILY@2199 RF: 0 Jardiance 25 mg tablet 25 mg PO DAILY@ RF: 0 Discharge Orders: Discharge Order (Routine); Ordered 12/17/20 Ordered By: Trice Ortega Referrals: Izzy Degroot MD [Physician] - (Please keep your appointment with Dr. Degroot on February 17 at 3:00P.M. If youahev any questions or need to reschedule. Please call ) Heather Jackson FNP [Nurse Practitioner] - (Please follow-up with Heather Jackson on December 25 at 10:00A.M. If you have any questions or need to reschedule. Please call ) Discharge Diet: Usual diet and Cardiac Discharge Activity: Resume usual activity Patient Instructions: Left Heart Catheterization (DC), Chest Pain Stoplight, Post Angiogram Home Care Instructions Discharge Attestations Time Spent in Discharge Care*: less than 30 min Quality Metrics Clinical Quality Measures During this hospital stay, did patient experience: None Coding Level of Care Code Acute Chg FW DC note Diagnoses Abnormal stress test R94.39 Chest pain due to CAD I25.119 Coronary artery disease I25.119 Coronary Disease-Associated Artery/Lesion type: [place] artery [place] vs. transplanted heart: [place] heart Associated angina: with unspecified angina Essential hypertension I10
--- NOTE | 2020-12-19 16:08 | PC.RESP ---
Smoking Cessation information sent to patient.
== END 2020-12-17 13:03 | disposition home or self-care (01) | DRG 287 ==
LOC: ER 14:37 → CSU 15:59
PROVIDERS: Internal Medicine Cardiovascular Disease; Admitting Provider Student in an Organized Health Care Education/Training Program; Emergency Provider Family Medicine; PCP Family Medicine; Visit Provider Student in an Organized Health Care Education/Training Program
PROC: 4A023N7 Measurement of Cardiac Sampling and Pressure, Left Heart, Percutaneous Approach (ICD-10-PCS; principal; 2020-12-17 07:00)
DX: I25.110 Atherosclerotic heart disease of native coronary artery with unstable angina pectoris (principal); I10 Essential (primary) hypertension; E11.65 Type 2 diabetes mellitus with hyperglycemia; F17.210 Nicotine dependence, cigarettes, uncomplicated; I25.2 Old myocardial infarction; K21.9 Gastro-esophageal reflux disease without esophagitis; Z86.73 Personal history of transient ischemic attack (TIA), and cerebral infarction without residual deficits; R94.39 Abnormal result of other cardiovascular function study; Z79.02 Long term (current) use of antithrombotics/antiplatelets; Z79.84 Long term (current) use of oral hypoglycemic drugs
CPT/HCPCS: 36415; 36416; 71045; 80053; 82962; 84484; 85025; 93005; 93454; 96372; 99285; C1769; C1887; C1894; J1644; J1650; J1815; J2250; J3010; J3490; J7030; Q0163; Q9967

== ENCOUNTER → 2020-12-25 10:57 | Outpatient (BNVA) | payer SELFPAY | PROVIDERS: PCP Family Medicine; Visit Provider Nurse Practitioner Family | DX: I25.10 Atherosclerotic heart disease of native coronary artery without angina pectoris (principal); G47.10 Hypersomnia, unspecified; Z87.898 Personal history of other specified conditions | CPT/HCPCS: 80048 ==

== ENCOUNTER 2021-01-12 07:55 | Outpatient (CLI) | payer SELFPAY ==
--- NOTE | 2021-01-12 08:00 | USCV_ITS ---
Nalini Vieyra Age: 50 Gender: F : 1970 Exam Date: 01/12/2021 08:10 Ordering Phys: Amy Bonds-Wicho Technologist: [facility] Exam Location: [facility] Indication: LT LEG PAIN HISTORY: Lower extremity pain. PROCEDURES: Venous duplex imaging was performed in only the left lower extremity. The following venous structures were evaluated: common femoral vein, profunda vein, proximal portion of the greater saphenous vein, superficial femoral vein, and the popliteal vein. In addition, the posterior tibial and peroneal trunk were evaluated. FINDINGS: Normal 2-D Doppler and augmentation and compressibility throughout the lower extremity venous structures. Additional imaging through the proximal calf veins also reveals no thrombus. Limited evaluation of the greater saphenous vein is patent with no thrombus.. CONCLUSIONS No evidence of left lower extremity DVT. Eder Rahman MD (Electronically Signed) Final Date: 12 Jan 2021 17:13 S
== END 2021-01-12 07:56 | disposition home or self-care (01) ==
LOC: RAD 08:00
PROVIDERS: PCP Family Medicine; Visit Provider Nurse Practitioner Family
DX: M79.89 Other specified soft tissue disorders (principal); M79.605 Pain in left leg
CPT/HCPCS: 93971

== ENCOUNTER → 2021-03-18 10:38 | Outpatient (BNVA) | payer OTHER, SELFPAY | PROVIDERS: PCP Family Medicine; Visit Provider Nurse Practitioner Family | DX: Z20.828 Contact with and (suspected) exposure to other viral communicable diseases (principal); J06.9 Acute upper respiratory infection, unspecified | CPT/HCPCS: 87635 ==

== ENCOUNTER → 2022-07-01 17:20 | Outpatient (BNVA) | payer SELFPAY | PROVIDERS: PCP Family Medicine; Visit Provider Family Medicine | DX: E11.9 Type 2 diabetes mellitus without complications (principal); I10 Essential (primary) hypertension; K21.9 Gastro-esophageal reflux disease without esophagitis | CPT/HCPCS: 80053; 80061; 83036; 84443; 85025 ==

== ENCOUNTER → 2022-09-07 12:58 | Outpatient (BNVA) | payer SELFPAY | PROVIDERS: PCP Family Medicine; Visit Provider Family Medicine | DX: N39.0 Urinary tract infection, site not specified (principal) | CPT/HCPCS: 81003 ==

== ENCOUNTER → 2023-02-08 11:55 | Outpatient (BNVA) | payer SELFPAY | PROVIDERS: PCP Family Medicine; Visit Provider Nurse Practitioner Family | DX: F32.9 Major depressive disorder, single episode, unspecified (principal); E11.9 Type 2 diabetes mellitus without complications; I10 Essential (primary) hypertension | CPT/HCPCS: 80053; 80061; 83036; 84443 ==

== ENCOUNTER 2023-03-21 13:50 | Outpatient (CLI) | payer SELFPAY ==
--- NOTE | 2023-03-21 14:02 | US_ITS ---
WS: [id number] THYROID ULTRASOUND HISTORY: NEOPLASM OF UNCERTAIN BEHAVIOR OF SKIN COMPARISON: 10/31/2013 Right lobe: 1.6 cm x 1.4 cm x 4.5 cm (w x ap x l). Volume: 5.1 cm3. Normal size and echotexture. No significant are dominant nodules are present. Left lobe: 1.5 cm x 1.1 cm x 4.0 cm (w x ap x l). Volume: 3.3 cm3. Normal size gland. Hypoechoic nodule in the mid gland measures 9 x 7 x 7 mm. Mild peripheral increase d vascularity. Isthmus: 0.3 cm. Small superficial cyst associated with the RIGHT submandibular gland corresponds to the palpable abno rmality. US/US thyroid [id number] IMPRESSION: 1. Subcentimeter LEFT thyroid nodule. Maximum diameter of 9 mm. Recommend ultr asound follow-up in 12 months to document continued stability. 2. RIGHT submandibular gland superficial cyst corresponds to the palpable nodu le.
== END 2023-03-21 13:51 | disposition home or self-care (01) ==
LOC: RAD 13:55
PROVIDERS: PCP Family Medicine; Visit Provider Dermatology
DX: D48.5 Neoplasm of uncertain behavior of skin (principal); E04.1 Nontoxic single thyroid nodule; K11.6 Mucocele of salivary gland
CPT/HCPCS: 76536

== ENCOUNTER 2023-04-07 04:56 | Observation (INO) | payer SELFPAY ==
[2023-04-07] VITALS (16 sets, daily range): BP systolic 134–218; BP diastolic 76–112; PULSE 65–83; RESP 14–20; TEMP 36.4–37.2; O2SAT 90–99; BMI 34.5
--- NOTE | 2023-04-07 04:56 | XRR_ITS ---
PROCEDURE INFORMATION: Exam: XR Chest Exam date and time: 04/07/2023 5:18 AM Age: 52 years old Clinical indication: Pain; Chest pressure; Prior surgery; Surgery date: 6+ months; Surgery type: Cardiac stents; Additional info: Cp TECHNIQUE: Imaging protocol: Radiologic exam of the chest. Views: 1 view. COMPARISON: CR XR chest 1V portable [id number] 12/16/2020 1:25 PM FINDINGS: Lungs: Unremarkable. No consolidation. Pleural spaces: Unremarkable. No pleural effusion. No pneumothorax. Heart/Mediastinum: Unremarkable. No cardiomegaly. Bones/joints: Unremarkable. XR/XR chest 1V portable [id number] IMPRESSION: No acute findings.
--- NOTE | 2023-04-07 05:01 | ECG_ITS ---
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 Measurements Intervals [place] Rate: 83 P: 54 IN: 176 QRS: 43 QRSD: 95 T: 47 QT: 393 QTc: 464 Interpretive Statements SINUS RHYTHM NONSPECIFIC ST & T-WAVE ABNORMALITY Compared to ECG 12/16/2020 16:09:29 No significant changes Electronically Signed On 04-08-2023 9:27:38 CDT by Ron Russell M.D. [id number]
--- NOTE | 2023-04-07 05:04 | ED_ITS ---
Documented by User: Silvia Cordoba MD 04/07/23 12:46 HPI - Chest Pain General: Chief Complaint: Chest Pain Stated Complaint: Chest pain Time Seen by Provider: 04/07/23 04:56 Source: patient and EMS Mode of arrival: EMS Limitations: no limitations History of Present Illness: 52-year-old female with a history of coronary disease she had stents placed back in 2016 she states that tonight at 3 AM she started having chest pain as a pressure type pain that was going into her neck. States this felt like her previous [place] patient came in by ambulance received aspirin nitro her pain is much improved currently denies any shortness of breath or cough. Associated symptoms: Deny abdominal pain, dyspnea, fever(s), nausea or vomiting Review of Systems Const: Denies: fever(s) or chills ENMT: Denies: throat pain or dental pain Card: Reports: chest pain Resp: Denies: dyspnea GI: Denies: abdominal pain, nausea, vomiting or diarrhea Musc: Denies: neck pain or back pain Skin/Breast: Denies: rash Neuro: Denies: headache(s) PFSH ED PFSH: Medical History Abnormal stress test Chest pain due to CAD Coronary artery disease stent to LAD and RCA 04/2016 [place] Depression Diabetes Essential hypertension GERD (gastroesophageal reflux disease) History of TIA (transient ischemic attack) Hyperlipidemia Myocardial infarction Smoking addiction Surgical History (Updated 04/07/23 @ 09:56 by Shaggy Mclaughlin MD) History of coronary angioplasty with insertion of stent 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 History of tonsillectomy History of tubal ligation Family History Father Hypertension CAD (coronary artery disease), Onset Age: 32 [place] and CABG Diabetes Brother CAD (coronary artery disease), Onset Age: 31 [place] Sister Family history of premature coronary artery disease Hypothyroidism Social History Smoking and tobacco status: current every day smoker cigarettes Packs smoked per day: 1 Years cigarettes smoked: 20 Second hand smoke exposure: Yes Alcohol intake: never Substance/Drug Use: never Adopted: No Lives independently: Yes Household members: spouse Housing: House Marital status: Number of children: 4 Number of grandchildren: 10 Highest education level completed: Master's Degree Current occupational status: employed Current gender identity: Female Physical Exam Const: COMMON NORMALS: no acute distress, patient oriented x3 and healthy appearing HENMT: COMMON NORMALS: normocephalic and atraumatic HEAD & SCALP: no rmocephalic and atraumatic Eye: COMMON NORMALS: conjunctivae normal CONJUNCTIVA: Yes conjunctivae normal Neck/C-Spine: COMMON NORMALS: full ROM and supple Chest: COMMONS NORMALS: normal inspection of the chest and normal palpation of entire chest wall Resp: COMMON NORMALS: normal respiratory effort, No retractions, No use of accessory muscles and clear to auscultation bilaterally AUSCULTATION: clear to auscultation bilaterally Cardio: COMMON NORMALS: regular rate, regular rhythm and No murmurs present (Cardio) RATE: regular rate RHYTHM: regular rhythm GI: COMMON NORMALS: Normal to inspection, nondistended, normoactive bowel sounds present, Soft to palpation, non-tender and no masses PALPATION: Yes Soft to palpation Extremity: COMMON NORMALS: normal to inspection and full ROM Neuro: COMMON NORMALS: patient oriented x3, moves all extremities and no focal motor deficits Psych: COMMON NORMALS: mental status grossly normal, Normal thought process present and cooperative THOUGHT PROCESS: Normal thought process present Skin: COMMON NORMALS: no rashes or lesions noted and no wounds GENERAL SKIN EXAM: no rashes or lesions noted Course Vital Signs: Vital signs: Vital Signs Temperature 98.2 F 04/08/23 15:00 Pulse Rate 70 04/08/23 15:00 Respiratory Rate 18 04/08/23 15:00 Blood Pressure 168/92 04/08/23 15:00 Pulse Oximetry 93 04/08/23 15:00 Oxygen Delivery Me thod Room Air 04/08/23 11:57 Oxygen Flow Rate 2 04/07/23 06:14 MDM - Chest Pain Medical Decision Making Patient presents here with chest pain patient's labs here are pending care turned over to Dr. Boyd Medical Records I reviewed the patient's medical records. Lab Data I reviewed the patient's lab results. 04/08/23 04:18 04/08/23 04:18 Radiology Impressions Chest X-Ray 04/07/23 04:56 IMPRESSION: No acute findings. Chest CTA 04/07/23 05:49 IMPRESSION: 1. Negative for pulmonary embolism. 2. Nonspecific mosaic attenuation pattern of the lung parenchyma without significant differences from remote comparison imaging. Suspect chronic small airways disease. Laboratory Results WBC 8.1 10^3/uL (4.0-10.0) 04/07/23 05:06 RBC 4.99 10^6/uL (4.1-5.3) 04/07/23 05:06 Hgb 15.2 g/dL (11.5-15.3) 04/07/23 05:06 Hct 44.2 % (37.0-47.0) 04/07/23 05:06 MCV 88.6 fl (81-99) 04/07/23 05:06 MCH 30.5 pg (28.0-34.0) 04/07/23 05:06 MCHC 34.4 g/dL (30.0-36.0) 04/07/23 05:06 RDW 12.7 % (12.1-15.1) 04/07/23 05:06 Plt Count 172 10^3/cmm (130-400) 04/07/23 05:06 MPV 9.2 fL (7.4-10.4) 04/07/23 05:06 Neut % (Auto) 62.2 % 04/07/23 05:06 Lymph % (Auto) 26.8 % 04/07/23 05:06 [place] % (Auto) 6.7 % 04/07/23 05:06 Eos % (Auto) 3.3 % 04/07/23 05:06 Baso % (Auto) 0.5 % 04/07/23 05:06 Neut # (Auto) 5.04 10^3/uL (1.8-7.7) 04/07/23 05:06 Lymph # (Auto) 2.2 10^3/uL (0.8-4.8) 04/07/23 05:06 [place] # (Auto) 0.5 10^3/uL (0.2-0.9) 04/07/23 05:06 Eos # (Auto) 0.3 10^3/uL (0.0-0.8) 04/07/23 05:06 Baso # (Auto) 0.0 10^3/uL (0.0-0.1) 04/07/23 05:06 Nucleated RBC % (auto) 0 % 04/07/23 05:06 Nucleated RBCs # 0.0 /100WBC 04/07/23 05:06 D-Dimer 0.94 ug/mIFEU (0-0.59) H 04/07/23 05:06 Sodium 137 mmol/L (136-145) 04/07/23 05:06 Potassium 3.9 mmol/L (3.5-5.1) 04/07/23 05:06 Chloride 101 mmol/L (98-107) 04/07/23 05:06 Carbon Dioxide 21 mmol/L (22-29) L 04/07/23 05:06 Anion Gap 18.9 (5-19) 04/07/23 05:06 BUN 8 mg/dL (6-20) 04/07/23 05:06 Creatinine 0.6 mg/dL (0.5-0.9) 04/07/23 05:06 GFR Calculation 105.0 mL/min (90-130) 04/07/23 05:06 Glucose 392 mg/dL (65-115) H 04/07/23 05:06 Calculated Osmolality 299 mOsm/kg (285-295) H 04/07/23 05:06 Calcium 8.5 mg/dL (8.5-10.5) 04/07/23 05:06 Total Bilirubin 0.4 mg/dL (0.15-1.2) 04/07/23 05:06 AST 33 U/L (0-32) H 04/07/23 05:06 ALT 43 U/L (0-33) H 04/07/23 05:06 Alkaline Phosphatase 110 U/L (35-105) H 04/07/23 05:06 Troponin T Baseline 9 ng/L (0-10) 04/07/23 05:06 Troponin T 120 Minute 9.64 ng/L (0-10) 04/07/23 06:52 Delta Troponin T 0.64 ABS# (0-10) 04/07/23 06:52 Total Protein 6.6 g/dL (6.6-8.7) 04/07/23 05:06 Albumin 4.0 g/dL (3.5-5.2) 04/07/23 05:06 Globulin 2.6 g/dL (1.3-4.6) 04/07/23 05:06 Hepatitis A IgM Ab Non-reactive (Nonreactive) 04/07/23 05:06 Hep Bs Antigen Non-reactive (Nonreactive) 04/07/23 05:06 Hep B Core IgM Ab Non-reactive (Nonreactive) 04/07/23 05:06 Hepatitis C Antibody Non-reactive (Nonreactive) 04/07/23 05:06 EKG Data EKG 1: I personally reviewed and interpreted this EKG as follows: EKG interpretation date: 04/07/23 EKG interpretation time: 05:01 Interpretation: nsr hr [address] or t wave abnormalities qrs 95 qtc 433 Discharge Plan Discharge Patient Disposition: Placed in Observation Admit Provider: Shaggy Mclaughlin Clinical Impression: Chest pain Discharge Diet: Cardiac and Diabetic Discharge Activity: Increase activity as tolerated Sign Out Sign Out Data: Patient Sign Out occurred on 04/07/23 at 06:04. Patient's care was discussed, and care was transferred from to Can Boyd MD. Coding Level of Care Code ED Technical Documentation Specialist for Chg Fwd Documented by User: Can Boyd MD 04/12/23 17:12 HPI - Chest Pain General: Chief Complaint: Chest Pain Stated Complaint: Chest pain Time Seen by Provider: 04/07/23 04:56 PFSH ED PFSH: Medical History Abnormal stress test Chest pain due to CAD Coronary artery disease stent to LAD and RCA 04/2016 [place] Depression Diabetes Essential hypertension GERD (gastroesophageal reflux disease) History of TIA (transient ischemic attack) Hyperlipidemia Myocardial infarction Smoking addiction Surgical History (Updated 04/07/23 @ 09:56 by Shaggy Mclaughlin MD) History of coronary angioplasty with insertion of stent 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 History of tonsillectomy History of tubal ligation Family History Father Hypertension CAD (coronary artery disease), Onset Age: 32 [place] and CABG Diabetes Brother CAD (coronary artery disease), Onset Age: 31 [place] Sister Family history of premature coronary artery disease Hypothyroidism Social History Smoking and tobacco status: current every day smoker cigarettes Packs smoked per day: 1 Years cigarettes smoked: 20 Second hand smoke exposure: Yes Alcohol intake: never Substance/Drug Use: never Adopted: No Lives independently: Yes Household members: spouse Housing: House Marital status: Number of children: 4 Number of grandchildren: 10 Highest education level completed: Master's Degree Current occupational status: employed Current gender identity: Female Course Vital Signs: Vital signs: Vital Signs Temperature 98.2 F 04/08/23 15:00 Pulse Rate 70 04/08/23 15:00 Respiratory Rate 18 04/08/23 15:00 Blood Pressure 168/92 04/08/23 15:00 Pulse Oximetry 93 04/08/23 15:00 Oxygen Delivery Me thod Room Air 04/08/23 11:57 Oxygen Flow Rate 2 04/07/23 06:14 MDM - Chest Pain Medical Decision Making Patient presents here with chest pain patient's labs here are pending care turned over to Dr. Boyd Patient care handoff received from Dr. Cordoba for completion of ED evaluation. Laboratory studies and imaging reviewed. On reassessment discussed disposition options. Patient is not low risk by heart score. The results of ED evaluation were discussed with the patient including plan for admission due to requirement for level of care not available if discharged to prevent significant worsening/deterioration. Patient agreeable with plan. Discussed with hospitalist service who was agreeable to admit patient. Can Boyd MD Emergency Medicine Lab Data 04/08/23 04:18 04/08/23 04:18 Radiology Impressions Chest X-Ray 04/07/23 04:56 IMPRESSION: No acute findings. Chest CTA 04/07/23 05:49 IMPRESSION: 1. Negative for pulmonary embolism. 2. Nonspecific mosaic attenuation pattern of the lung parenchyma without significant differences from remote comparison imaging. Suspect chronic small airways disease. Laboratory Results WBC 8.1 10^3/uL (4.0-10.0) 04/07/23 05:06 RBC 4.99 10^6/uL (4.1-5.3) 04/07/23 05:06 Hgb 15.2 g/dL (11.5-15.3) 04/07/23 05:06 Hct 44.2 % (37.0-47.0) 04/07/23 05:06 MCV 88.6 fl (81-99) 04/07/23 05:06 MCH 30.5 pg (28.0-34.0) 04/07/23 05:06 MCHC 34.4 g/dL (30.0-36.0) 04/07/23 05:06 RDW 12.7 % (12.1-15.1) 04/07/23 05:06 Plt Count 172 10^3/cmm (130-400) 04/07/23 05:06 MPV 9.2 fL (7.4-10.4) 04/07/23 05:06 Neut % (Auto) 62.2 % 04/07/23 05:06 Lymph % (Auto) 26.8 % 04/07/23 05:06 [place] % (Auto) 6.7 % 04/07/23 05:06 Eos % (Auto) 3.3 % 04/07/23 05:06 Baso % (Auto) 0.5 % 04/07/23 05:06 Neut # (Auto) 5.04 10^3/uL (1.8-7.7) 04/07/23 05:06 Lymph # (Auto) 2.2 10^3/uL (0.8-4.8) 04/07/23 05:06 [place] # (Auto) 0.5 10^3/uL (0.2-0.9) 04/07/23 05:06 Eos # (Auto) 0.3 10^3/uL (0.0-0.8) 04/07/23 05:06 Baso # (Auto) 0.0 10^3/uL (0.0-0.1) 04/07/23 05:06 Nucleated RBC % (auto) 0 % 04/07/23 05:06 Nucleated RBCs # 0.0 /100WBC 04/07/23 05:06 D-Dimer 0.94 ug/mIFEU (0-0.59) H 04/07/23 05:06 Sodium 137 mmol/L (136-145) 04/07/23 05:06 Potassium 3.9 mmol/L (3.5-5.1) 04/07/23 05:06 Chloride 101 mmol/L (98-107) 04/07/23 05:06 Carbon Dioxide 21 mmol/L (22-29) L 04/07/23 05:06 Anion Gap 18.9 (5-19) 04/07/23 05:06 BUN 8 mg/dL (6-20) 04/07/23 05:06 Creatinine 0.6 mg/dL (0.5-0.9) 04/07/23 05:06 GFR Calculation 105.0 mL/min (90-130) 04/07/23 05:06 Glucose 392 mg/dL (65-115) H 04/07/23 05:06 Calculated Osmolality 299 mOsm/kg (285-295) H 04/07/23 05:06 Calcium 8.5 mg/dL (8.5-10.5) 04/07/23 05:06 Total Bilirubin 0.4 mg/dL (0.15-1.2) 04/07/23 05:06 AST 33 U/L (0-32) H 04/07/23 05:06 ALT 43 U/L (0-33) H 04/07/23 05:06 Alkaline Phosphatase 110 U/L (35-105) H 04/07/23 05:06 Troponin T Baseline 9 ng/L (0-10) 04/07/23 05:06 Troponin T 120 Minute 9.64 ng/L (0-10) 04/07/23 06:52 Delta Troponin T 0.64 ABS# (0-10) 04/07/23 06:52 Total Protein 6.6 g/dL (6.6-8.7) 04/07/23 05:06 Albumin 4.0 g/dL (3.5-5.2) 04/07/23 05:06 Globulin 2.6 g/dL (1.3-4.6) 04/07/23 05:06 Hepatitis A IgM Ab Non-reactive (Nonreactive) 04/07/23 05:06 Hep Bs Antigen Non-reactive (Nonreactive) 04/07/23 05:06 Hep B Core IgM Ab Non-reactive (Nonreactive) 04/07/23 05:06 Hepatitis C Antibody Non-reactive (Nonreactive) 04/07/23 05:06 Discharge Plan Discharge Patient Disposition: Placed in Observation Admit Provider: Shaggy Mclaughlin Clinical Impression: Chest pain Discharge Diet: Cardiac and Diabetic Discharge Activity: Increase activity as tolerated Sign Out Sign Out Data: Patient Sign Out occurred on 04/07/23 at 06:04. Patient's care was discussed, and care was transferred from to Can Boyd MD. Coding Level of Care Code ED Technical Documentation Specialist for [place]
[2023-04-07 05:10] LABS: Basophils % 0.5 %; Eosinophils # 0.3 10^3/uL (0.0-0.8); Eosinophils % 3.3 %; Hematocrit 44.2 % (37.0-47.0); Hemoglobin 15.2 g/dL (11.5-15.3); Lymphocytes # 2.2 10^3/uL (0.8-4.8); Lymphocytes % 26.8 %; Mean Corpuscular HGB Conc 34.4 g/dL (30.0-36.0); Mean Corpuscular Hemoglobin 30.5 pg (28.0-34.0); Mean Corpuscular Volume 88.6 fl (81-99); Mean Platelet Volume 9.2 fL (7.4-10.4); Monocytes # 0.5 10^3/uL (0.2-0.9); Monocytes % 6.7 %; Neutrophils # 5.04 10^3/uL (1.8-7.7); Neutrophils % 62.2 %; Nucleated Red Blood Cells % 0 %; Platelet Count 172 10^3/cmm (130-400); Red Blood Count 4.99 10^6/uL (4.1-5.3); Red Cell Distribution Width 12.7 % (12.1-15.1); White Blood Count 8.1 10^3/uL (4.0-10.0)
[2023-04-07] MEDS: labetalol 5 mg/mL SDV 20mL 10 MG IVP (05:13)
[2023-04-07] MEDS: ondansetron 2 mg/ML SDV 2 mL 4 MG IVP (05:28)
[2023-04-07] MEDS: morphine 4 mg/mL SDV 1 mL IVP (05:28)
[2023-04-07 05:39] LABS: Troponin(5th) Baseline 9 ng/L (0-10)
[2023-04-07 05:48] LABS: D Dimer 0.94 ug/mIFEU (0-0.59)
--- NOTE | 2023-04-07 05:49 | CTR_ITS ---
PROCEDURE INFORMATION: Exam: CTA Chest With Contrast Exam date and time: 04/07/2023 6:05 AM Age: 52 years old Clinical indication: Pain; Chest pressure; Prior surgery; Surgery date: 6+ months; Surgery type: Stents; Additional info: Cp TECHNIQUE: Imaging protocol: Computed tomographic angiography of the chest with contrast. Exam focused on the arteries. 3D rendering (Not supervised by radiologist): MIP and/or 3D reconstructed images were created by the technologist. Radiation optimization: All CT scans at this facility use at least one of these dose optimization techniques: automated exposure control; mA and/or kV adjustment per patient size (includes targeted exams where dose is matched to clinical indication); or iterative reconstruction. Contrast material: OMNI 350; Contrast volume: 76 ml; Contrast route: INTRAVENOUS (IV); REPORTING DATA: Count of CT and Cardiac NM exams in prior 12 months: This patient has received 0 known CTs and 0 known cardiac nuclear medicine studies in the 12 months prior to the current study. COMPARISON: CT angio chest PE protcl [id number] 08/31/2016 12:41 PM RADIATION DOSE METRICS: Total DLP (mGy-cm): 420.25 FINDINGS: Pulmonary arteries: Normal. No pulmonary emboli. Aorta: Unremarkable. No aortic aneurysm. No aortic dissection. Lungs: Mosaic attenuation changes of the lung parenchyma. Negative for pulmonary consolidation. Negative for central endobronchial obstruction. Negative for peripheral honeycombing. Negative for bronchiectasis. Pleural spaces: Unremarkable. No pneumothorax. No pleural effusion. Heart: Unremarkable. No cardiomegaly. No pericardial effusion. Lymph nodes: Unremarkable. No enlarged lymph nodes. Bones/joints: Unremarkable. No acute fracture. Soft tissues: Unremarkable. CT/CT angio chest PE protcl [id number] IMPRESSION: 1. Negative for pulmonary embolism. 2. Nonspecific mosaic attenuation pattern of the lung parenchyma without significant differences from remote comparison imaging. Suspect chronic small airways disease.
--- NOTE | 2023-04-07 06:14 | PC.NURSE ---
pt in CT at this time
[2023-04-07 06:15] LABS: Alanine Aminotransferase 43 U/L (0-33); Alkaline Phosphatase 110 U/L (35-105); Anion Gap 18.9 (5-19); Aspartate Amino Transferase 33 U/L (0-32); Blood Urea Nitrogen 8 mg/dL (6-20); Calcium 8.5 mg/dL (8.5-10.5); Carbon Dioxide 21 mmol/L (22-29); Chloride 101 mmol/L (98-107); Globulin 2.6 g/dL (1.3-4.6); Glucose 392 mg/dL (65-115); Osmolality Calculated 299 mOsm/kg (285-295); Potassium 3.9 mmol/L (3.5-5.1); Sodium 137 mmol/L (136-145); Total Bilirubin 0.4 mg/dL (0.15-1.2); Total Protein 6.6 g/dL (6.6-8.7)
[2023-04-07] MEDS: iohexol 350 mg/mL 500 mL Btl (per mL) IV (06:16)
--- NOTE | 2023-04-07 06:57 | ECG_ITS ---
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 Measurements Intervals [place] Rate: 74 P: 58 MN: 182 QRS: 44 QRSD: 94 T: 48 QT: 429 QTc: 476 Interpretive Statements SINUS RHYTHM NONSPECIFIC ST & T-WAVE ABNORMALITY Compared to ECG 04/07/2023 05:01:55 No significant changes Electronically Signed On 04-08-2023 9:31:30 CDT by Ron Russell M.D. [id number]
--- NOTE | 2023-04-07 07:11 | PC.NURSE ---
Report from KIMBERLY Hawley. Pt assisted to restroom. No further needs at this time.
[2023-04-07 07:17] LABS: Troponin 5 2HR 9.64 ng/L (0-10)
[2023-04-07 07:57] LABS: Troponin 5 2HR Delta 0.64 ABS# (0-10)
--- NOTE | 2023-04-07 08:26 | PC.NURSE ---
Pt resting quietly. Denies pain at this time. Family updated on plan of care.
--- NOTE | 2023-04-07 09:52 | P.HP_ITS ---
Providers/Chief Complaint Admitting Physician: Shaggy Mclaughlin MD Primary Care Provider: Shital Capps MD Chief Complaint: Chest pain History of Present Illness Nalini Vieyra is a 52 year old female who presents to the hospital with complaints of some chest discomfort. She states it is substernal, started around 2 AM and came and went. Some radiation into the neck. No shortness of breath, or nausea. It felt burning at times. Occasionally it was sharp. No recent fever, cough. Denies any exertional discomfort or any discomfort at all in the preceding month. Has past history of coronary artery disease with 3 stents around 2015. Last angiogram in November 2020 did not demonstrate significant flow-limiting coronary disease. She reports no blood in her stool, black or tarry stools. She denies any chest discomfort currently. Review of Systems General: Reports: 10 or more systems reviewed and unremarkable except in HPI and below Card: Reports: chest pain Resp: Reports: dyspnea GI: Denies: abdominal pain, nausea, vomiting, hematochezia or melena Medications/Allergies Home Medications Medication Instructions Recorded Confirmed Last Taken Type atorvastatin 40 mg tablet 40 mg PO .QHS 30 days #30 tabs 02/08/23 04/07/23 04/06/23 Rx clopidogrel 75 mg tablet 75 mg PO DAILY 30 days #30 tabs 02/08/23 04/07/23 0 04/06/23 Rx escitalopram oxalate 20 mg tablet 20 mg PO DAILY 30 days #30 tabs 02/08/23 04/07/23 04/06/23 Rx glipizide 10 mg tablet, extended 10 mg PO BID 30 days #60 tabs 02/08/23 04/07/23 04/06/23 Rx release 24 hr nitroglycerin 0.4 mg sublingual See Rx Instructions .Route 02/08/23 04/07/23 04/07/23 Rx tablet .COMPLEX #25 tabs valsartan 80 mg tablet (Diovan) 80 mg PO DAILY #30 tabs 02/08/23 04/07/23 04/06/23 Rx aspirin 81 mg tablet,delayed 81 mg PO DAILY 04/07/23 04/07/23 04/06/23 History release clobetasol 0.05 % topical ointment See Rx Instructions .Route .COMPLEX 04/07/23 04/07/23 04/06/23 History ergocalciferol (vitamin D2) 1,250 1,250 mcg PO Q7D 04/07/23 04/07/23 04/02/23 History mcg (50,000 unit) capsule isosorbide mononitrate 30 mg 15 mg PO BID 04/07/23 04/07/23 04/06/23 History tablet,extended release 24 hr metformin 1,000 mg tablet 1,000 mg PO BID 04/07/23 04/07/23 04/06/23 History metoprolol succinate 100 mg 100 mg PO DAILY 04/07/23 04/07/23 04/06/23 History tablet,extended release 24 hr montelukast 10 mg tablet 10 mg PO DAILY 04/07/23 04/07/23 04/06/23 History oxybutynin chloride 15 mg 15 mg PO DAILY 04/07/23 04/07/23 04/06/23 History tablet,extended release 24 hr pantoprazole 40 mg tablet,delayed 40 mg PO DAILY 04/07/23 04/07/23 04/06/23 History release Allergies Allergy/AdvReac Type Severity Reaction Status Date / Time No Known Allergies Allergy Verified 04/07/23 05:03 PFSH Acute PFSH: Medical History Chest pain due to CAD Coronary artery disease stent to LAD and RCA 04/2016 RUSS Martin Depression Diabetes Essential hypertension GERD (gastroesophageal reflux disease) History of TIA (transient ischemic attack) Hyperlipidemia Myocardial infarction Smoking addiction Surgical History (Updated 04/07/23 @ 09:56 by Shaggy Mclaughlin MD) History of coronary angioplasty with insertion of stent 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 History of tonsillectomy History of tubal ligation Family History Father Hypertension CAD (coronary artery disease), Onset Age: 32 [place] and CABG Diabetes Brother CAD (coronary artery disease), Onset Age: 31 [place] Sister Family history of premature coronary artery disease Hypothyroidism Social History Smoking and tobacco status: current every day smoker cigarettes Packs smoked per day: 1 Years cigarettes smoked: 20 Second hand smoke exposure: Yes Alcohol intake: never Substance/Drug Use: never Adopted: No Lives independently: Yes Household members: spouse Housing: House Marital status: Number of children: 4 Number of grandchildren: 10 Highest education level completed: Master's Degree Current occupational status: employed Current gender identity: Female Vitals/I&O/Wt Last Vital Signs Temp 98.1 F 04/07/23 04:58 Pulse 73 04/07/23 08:42 Resp 14 04/07/23 08:42 BP 162/103 04/07/23 08:42 Pulse Ox 92 04/07/23 08:42 O2 Del Method Nasal Cannula 04/07/23 08:42 O2 Flow Rate 2 04/07/23 06:14 Weight last 48 hrs Weight 88.451 kg Physical Exam Const: OTHER: General exam: No distress, alert and oriented HEENT: Atraumatic normocephalic. Oropharynx clear Neck is supple no lymphadenopathy or thyromegaly Cardiovascular regular rate and rhythm, no murmur Lungs clear no wheezing or crackles Abdomen soft, positive bowel sounds. No obvious organomegaly exam is deferred Extremities no cyanosis clubbing or edema, cap refill brisk Skin no rash Neuro no obvious focal deficits Data 04/07/23 05:06 04/07/23 05:06 Other Labs: Dimer is 0.94 LFTs demonstrated an AST of 33, ALT 43, alk phos of 110 Troponin 9, repeat 9.64. 6 are pending Recent TSH normal I have ordered a hepatitis panel CTA was negative for pulm embolism. Chronic small airway disease suspected Chest x-ray which I reviewed no infiltrate EKG demonstrates sinus rhythm, normal axis, nonspecific ST-T wave changes unchanged from previously A&P Assessment and plan (1) Chest pain: Patient presents with chest discomfort. It is somewhat atypical. Initial troponin is negative Will obtain echocardiogram Complete serial troponins Nuclear stress test tomorrow Observation currently Encouraged cessation of smoking CBC, BMP in the morning (2) Diabetes: Sliding scale insulin Consistent carb diet (3) Coronary artery disease: Has history of coronary disease Last angiogram 2020 with 20% LAD lesion, 30% circumflex lesion, mid RCA with 20% lesion. No intervention performed at that time. Patient believes around 2015 she had 3 stents. Qualifiers: Associated angina: with unspecified form of angina Coronary Disease- Associated Artery/Lesion type: [place] artery [place] vs. transplanted heart: [place] heart Qualified Code(s): I25.119 - Atherosclerotic heart disease of [place] coronary artery with unspecified angina pectoris Plan Transaminitis. Suspect fatty liver. Check hepatitis panel. Tobacco dependency. Counseled on abstinence. Nicotine patch while in the hospital. Multiple other medical problems as outlined in past medical history Full code Lovenox for DVT prophylaxis Attestations Medical Necessity Statement*: Will require less than 2 midnight stay for evaluation and treatment of chest discomfort Diagnoses Chest pain R07.9 Diabetes E11.9 Coronary artery disease I25.119 Associated angina: with unspecified form of angina Coronary Disease-Associated Artery/Lesion type: [place] artery [place] vs. transplanted heart: [place] heart Time Spent (min) 42
--- NOTE | 2023-04-07 10:07 | USCV_ITS ---
Nalini Vieyra Age: 52 Gender: F : 1970 Exam Date: 04/07/2023 11:30 Ordering Phys: Shaggy Mclaughlin MD Technologist: Anival Morrison [place] [facility] [place] [facility] [place]: chest pain BP: 165 / 91 HR: 78 Rhythm: Sinus Technical Quality: Adequate MEASUREMENTS (Male / Female) Normal Values 2D ECHO LVOT Diameter 2.0 cm LV Ejection Fraction MOD 2C 63.7 % LV Ejection Fraction 2C AL 63.5 % LA Diameter 3.5 cm LA Width 3.8 cm LA Height 4.9 cm RA Width 3.9 cm RA Height 4.3 cm Aorta at Sinotubular Diameter 2.8 cm IVC Diameter 1.7 cm M-MODE Aortic Annulus Diameter 2.9 cm LA Ao Ratio MM 1.3 MV E Point Septal Separation 0.6 cm DOPPLER AV Peak Velocity 183.7 cm/s LVOT Peak Velocity 123.0 cm/s AV Area Cont Eq vti 2.3 cm squared AV Area Cont Eq pk 2.1 cm squared MV Peak Velocity 117.0 cm/s MV Area PHT 3.4 cm squared Mitral E to A Ratio 0.8 MV E' Velocity 41.0 cm/s Mitral E to MV E' Ratio 12.1 Mitral E to LV E' Lateral Ratio 11.0 Mitral E to LV E' Septal Ratio 13.4 TR Peak Velocity 307.1 cm/s TR Peak Gradient 37.7 mmHg TR Mean Velocity 240.7 cm/s TR Mean Gradient 25.9 mmHg TR Velocity Time Integral 83.3 cm Right Atrial Pressure 3.0 mmHg Pulmonary Artery Systolic Pressu 40.7 mmHg PV Peak Velocity 128.3 cm/s RV Acceleration Time 0.1 s RV Ejection Time 0.3 s RV AcT/ET 0.3 FINDINGS Left Ventricle Left ventricle is normal in size. LV systolic function is normal with EF of 55 to 60%. No regional wall motion abnormalities are seen. Grade 1 diastolic dysfunction Right Ventricle Normal in size and function Right Atrium Normal in size Left Atrium Normal in size Mitral Valve Structurally normal mitral valve. Mild mitral regurgitation. Aortic Valve Aortic valve is thickened. No significant stenosis. Mild aortic regurgitation. Tricuspid Valve Mild tricuspid regurgitation. Insufficient TR jet to calculate RVSP Pulmonic Valve Not well-visualized Pericardium Normal Aorta Normal in size IVC Appears to be normal CONCLUSIONS LV systolic function is normal with EF 55 to 60%. Grade 1 diastolic dysfunction Mild mitral regurgitation Mild aortic regurgitation Mild tricuspid regurgitation Compared to prior echocardiogram from 2018, no significant changes are noted. Ron Russell MD (Electronically Signed) Final Date: 07 April 2023 18:36 S
[2023-04-07 10:32] LABS: Hepatitis A Antibody IgM Non-Reactive (Nonreactive); Hepatitis B Core IgM Non-Reactive (Nonreactive); Hepatitis B Surface Antigen Non-Reactive (Nonreactive); Hepatitis C Virus Antibody Non-Reactive (Nonreactive)
[2023-04-07] MEDS: montelukast sodium 10 mg Tablet PO (10:57)
--- NOTE | 2023-04-07 10:57 | ECG_ITS ---
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 Measurements Intervals [place] Rate: 68 P: 52 MT: 198 QRS: 46 QRSD: 93 T: 46 QT: 430 QTc: 459 Interpretive Statements SINUS RHYTHM NONSPECIFIC ST & T-WAVE ABNORMALITY Compared to ECG 04/07/2023 07:00:23 No significant changes Electronically Signed On 04-08-2023 9:31:15 CDT by Ron Russell M.D. [id number]
[2023-04-07] MEDS: losartan 50 mg Tablet 25 MG PO (10:58)
[2023-04-07] MEDS: pantoprazole DR 40 mg Tablet PO (10:58)
[2023-04-07] MEDS: metoprolol succinate ER (24 HR) 100 mg Tablet PO (10:58)
[2023-04-07] MEDS: isosorbide mononitrate ER 30 mg Tablet 15 MG PO ×2 (10:59→17:41)
[2023-04-07] MEDS: enoxaparin 40 mg/0.4 mL Syringe SUBCUT (10:59)
[2023-04-07] MEDS: clopidogrel 75 mg Tablet PO (11:00)
[2023-04-07] MEDS: escitalopram 10 mg Tablet 20 MG PO (11:00)
[2023-04-07] MEDS: aspirin 81 mg EC Tablet PO (11:00)
[2023-04-07] MEDS: nicotine 21 mg Patch 1 PATCH TRANSDERMA (11:00)
[2023-04-07 11:40] LABS: Glucose Point of Care 381 mg/dL (70-110)
[2023-04-07 12:07] LABS: Troponin 5 6HR 9.72 ng/L (0-10); Troponin 5 6HR Delta 0.72 ng/L (0-12)
[2023-04-07] MEDS: insulin lispro 100 unit/1 mL SUBCUT ×3 (12:40→21:17)
[2023-04-07 17:27] LABS: Glucose Point of Care 319 mg/dL (70-110)
[2023-04-07] MEDS: atorvastatin 40 mg Tablet PO (20:06)
[2023-04-07 20:52] LABS: Glucose Point of Care 294 mg/dL (70-110)
[2023-04-08 03:48] VITALS: BP 158/89; PULSE 67; RESP 17; TEMP 36.4; O2SAT 90
[2023-04-08 04:58] LABS: Basophils % 0.4 %; Eosinophils # 0.3 10^3/uL (0.0-0.8); Eosinophils % 3.9 %; Hematocrit 43.5 % (37.0-47.0); Hemoglobin 14.5 g/dL (11.5-15.3); Lymphocytes # 2.3 10^3/uL (0.8-4.8); Lymphocytes % 30.6 %; Mean Corpuscular HGB Conc 33.3 g/dL (30.0-36.0); Mean Corpuscular Volume 89.9 fl (81-99); Mean Platelet Volume 9.7 fL (7.4-10.4); Monocytes # 0.5 10^3/uL (0.2-0.9); Monocytes % 6.3 %; Neutrophils # 4.38 10^3/uL (1.8-7.7); Neutrophils % 58.5 %; Nucleated Red Blood Cells % 0 %; Platelet Count 181 10^3/cmm (130-400); Red Blood Count 4.84 10^6/uL (4.1-5.3); Red Cell Distribution Width 12.8 % (12.1-15.1); White Blood Count 7.5 10^3/uL (4.0-10.0)
[2023-04-08 05:21] LABS: Alanine Aminotransferase 43 U/L (0-33); Albumin Level 3.9 g/dL (3.5-5.2); Alkaline Phosphatase 92 U/L (35-105); Anion Gap 16.9 (5-19); Aspartate Amino Transferase 38 U/L (0-32); Blood Urea Nitrogen 11 mg/dL (6-20); Calcium 8.5 mg/dL (8.5-10.5); Carbon Dioxide 26 mmol/L (22-29); Chloride 101 mmol/L (98-107); Globulin 2.3 g/dL (1.3-4.6); Glucose 285 mg/dL (65-115); Osmolality Calculated 300 mOsm/kg (285-295); Potassium 3.9 mmol/L (3.5-5.1); Sodium 140 mmol/L (136-145); Total Bilirubin 0.4 mg/dL (0.15-1.2); Total Protein 6.2 g/dL (6.6-8.7)
[2023-04-08 06:00] VITALS: PULSE 67
--- NOTE | 2023-04-08 06:39 | PC.NURSE ---
STRESS TEST Leaving floor via wheelchair for Nuclear Stress Test. No c/o
[2023-04-08 06:48] LABS: Glucose Point of Care 273 mg/dL (70-110)
--- NOTE | 2023-04-08 07:00 | ECG_ITS ---
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 Interpretive Statements NAME OF STUDY: LEXISCAN SESTAMIBI STRESS TEST INDICATION: [Chest Pain, ] Procedure: At the baseline, the blood pressure was 157/86 mmHg with a heart rate of 64 bpm. The electrocardiogram showed normal sinus rhythm, normal axis with normal ST and T's. The Lexiscan was infused over a period of 20 seconds. A total of 0.4 mg of Lexiscan was infused. The stress phase was continued for a total of 5 minutes. Heart rate was at the end of stress phase was 88 bpm and a blood pressure of 162/86 mmHg. The EKG at the peak infusion revealed normal sinus rhythm with no significant ST-T wave changes. Sestamibi was injected 20 seconds after the Lexiscan infusion. Blood pressure at the end of recovery phase was 163/83 mmHg with a heart rate of 84 bpm. Conclusion: 1. Normal EKG response to Lexiscan infusion 2. No Lexiscan induced chest pain or cardiac arrhythmia. 3. Normal blood pressure and heart rate response. 4. Sestamibi/sestamibi perfusion scan pending; see separate report. Electronically Signed On 04-19-2023 11:41:49 CDT by Ron Russell M.D. [id number]
[2023-04-08] MEDS: regadenoson 0.4 Mg/5 ml Syringe IVP (07:13)
[2023-04-08 07:34] VITALS: BP 163/83; PULSE 86
--- NOTE | 2023-04-08 08:00 | NMCV_ITS ---
NM russell perf SPECT r/s* [id number] Nalini Vieyra Age: 52 Gender: F : 1970 Exam Date: 04/08/2023 06:19 Ordering Phys: Shaggy Mclaughlin MD Technologist: COLIN Jon Exam Location: [facility] Indications: CHEST PAIN STRESS TEST Please see separate stress test report in [facility] for full findings IMAGE PROTOCOL Rest/Stress 1 Lexiscan Day Radiopharmaceutical Dose (mCi) Administration Site Administered by Rest: Tc-99m 10.9 IV Jaciel Bermeo, TRANSFER DRIVER Sestamibi Stress:Tc-99m 32.9 IV Jaciel Bermeo, TRANSFER DRIVER Sestamibi Rest: 08-Apr-2023 60 Discovery 630 Stress: 08-Apr-2023 30 Discovery 630 0.4mg Lexiscan. Images obtained in supine and prone position. SPECT RESULTS Technical Quality: Excellent Raw Data Analysis: Normal Image Corrections: No attenuation or motion correction applied Summed Stress Score: 1 Summed Rest Score: 0 Summed Difference Score: 1 PERFUSION FINDINGS There is a very small area of reversible perfusion defect noted in the mid anterior wall. This is consistent with small sized area of ischemia vs attenuation artifact in the LAD territory. FUNCTIONAL RESULTS (calculated via Gated SPECT) Stress Image LV EF (%): 65 Stress EDV (mL):124 TID: 0.96 Stress ESV (mL):44 FUNCTIONAL FINDINGS: There is normal left ventricular systolic function. IMPRESSIONS 1. There is a very small area of possible ischemia in LAD territory. Attenuation artifact cannot be ruled out. Clinical correlation is required. 2. LV systolic function is normal. Ron Russell MD (Electronically Signed) Final Date: 08 April 2023 10:37 S
[2023-04-08] MEDS: insulin lispro 100 unit/1 mL SUBCUT ×2 (09:46→11:30)
[2023-04-08] MEDS: escitalopram 10 mg Tablet 20 MG PO (09:46)
[2023-04-08] MEDS: isosorbide mononitrate ER 30 mg Tablet 15 MG PO (09:46)
[2023-04-08] MEDS: aspirin 81 mg EC Tablet PO (09:46)
[2023-04-08] MEDS: pantoprazole DR 40 mg Tablet PO (09:47)
[2023-04-08] MEDS: metoprolol succinate ER (24 HR) 100 mg Tablet PO (09:47)
[2023-04-08] MEDS: losartan 50 mg Tablet PO (09:47)
[2023-04-08] MEDS: nicotine 21 mg Patch 1 PATCH TRANSDERMA (09:47)
[2023-04-08] MEDS: montelukast sodium 10 mg Tablet PO (09:47)
[2023-04-08] MEDS: clopidogrel 75 mg Tablet PO (09:47)
[2023-04-08] MEDS: enoxaparin 40 mg/0.4 mL Syringe SUBCUT (09:48)
[2023-04-08 11:19] LABS: Glucose Point of Care 378 mg/dL (70-110)
--- NOTE | 2023-04-08 11:45 | PM.PN ---
Subjective Subjective: Patient reports no chest discomfort overnight. Overall doing okay. Nuclear stress test was done this morning. Medications: Reviewed: Yes Vitals/I&O/Wt Last Vital Signs Temp 97.6 F 04/08/23 03:48 Pulse 86 04/08/23 07:34 Resp 17 04/08/23 03:48 BP 163/83 04/08/23 07:34 Pulse Ox 90 04/08/23 03:48 O2 Del Method Room Air 04/08/23 03:48 O2 Flow Rate 2 04/07/23 06:14 04/07/23 04/08/23 04/08/23 22:59 06:59 14:59 Intake Total 240 / 600 Balance 240 / 600 Weight last 48 hrs Weight 88.451 kg Physical Exam Const: OTHER: General exam: No distress, alert and oriented Neck is supple no lymphadenopathy or thyromegaly Cardiovascular regular rate and rhythm, no murmur Lungs clear no wheezing or crackles Abdomen soft, positive bowel sounds. No obvious organomegaly Extremities no cyanosis clubbing or edema, cap refill brisk Data 04/08/23 04:18 04/08/23 04:18 A&P Assessment and plan (1) Chest pain: Patient presents with chest discomfort. It is somewhat atypical. Troponins all negative Echocardiogram largely normal. 1/4 diastolic dysfunction. Mild valvular regurgitation Nuclear imaging demonstrates a small area of possible ischemia LAD territory Encouraged cessation of smoking Cardiology consultation secondary to abnormal nuclear stress testing. I have contacted Dr. Sainz (2) Diabetes: Sliding scale insulin Consistent carb diet (3) Coronary artery disease: Has history of coronary disease Last angiogram 2020 with 20% LAD lesion, 30% circumflex lesion, mid RCA with 20% lesion. No intervention performed at that time. Patient believes around 2015 she had 3 stents. Qualifiers: Associated angina: with unspecified form of angina Coronary Disease-Associated Artery/Lesion type: [place] artery [place] vs. transplanted heart: [place] heart Qualified Code(s): I25.119 - Atherosclerotic heart disease of [place] coronary artery with unspecified angina pectoris Plan Transaminitis. Suspect fatty liver. Hepatitis panel negative. LFTs stable. Probable sleep apnea by description of patient today. She has sleep disordered breathing pattern. Discussed with her this could relate to her diastolic dysfunction, and hypertension. Recommended outpatient nuclear stress testing Hypertension. Blood pressures have been higher. Increase losartan to 50 mg daily Tobacco dependency. Counseled on abstinence. Nicotine patch while in the hospital. Multiple other medical problems as outlined in past medical history Full code Lovenox for DVT prophylaxis Attestations Medical Necessity Statement*: Needs continued hospitalization, pending cardiology consultation Diagnoses Chest pain R07.9 Diabetes E11.9 Coronary artery disease I25.119 Associated angina: with unspecified form of angina Coronary Disease-Associated Artery/Lesion type: [place] artery [place] vs. transplanted heart: [place] heart Time Spent (min) 28
[2023-04-08 11:57] VITALS: BP 168/92; PULSE 70; RESP 18; TEMP 36.8; O2SAT 93
--- NOTE | 2023-04-08 13:27 | PM.CONSULT ---
Providers/Reason For Consult Consulting Physician/Specialty*: Cardiovascular medicine Reason for Consult*: Chest pain Requesting Physician: Arnoldo Attending Physician: Shaggy Mclaughlin MD Primary Care Provider: Shital Capps MD History of Present Illness History of Present Illness Nalini Vieyra is a 52 year old female with a known history of coronary artery disease among many others. She has previously placed right coronary artery and LAD stents. She has been stable for the most part but has a number of other medical problems that are not in good control. She is an uncontrolled diabetic and continues to smoke. She is obese with depression, hypertension, transient ischemic attacks, GERD and dyslipidemia. 2 years ago she had chest discomfort and was admitted to this hospital. A sestamibi at that time revealed a small distribution LAD defect. She underwent coronary angiography at that time. Stents were open and she had 20 to 30% stenosis elsewhere. She was admitted again with similar symptoms with substernal sharp burning pain that radiated through to her back and up into her neck. Her troponins were completely -9 and 9. Her EKGs reveal sinus rhythm with nonspecific ST and T wave changes. These are exactly the same as those which have been seen in the past. She also had an echo which shows normal LV function and mild valvular regurgitation. A sestamibi examination shows an even smaller defect in the distribution of the LAD which may very well be an attenuation artifact. This was similar or improved from the 2020 sestamibi that was done prior to the angiogram. She is pretty nervous about all of this. She has been free of pain since she has been here. Review of Systems Narrative: Review of systems is negative Medications/Allergies Home Medications Medication Instructions Recorded Confirmed Last Taken Type atorvastatin 40 mg tablet 40 mg PO .QHS 30 days #30 tabs 02/08/23 04/07/23 04/06/23 Rx clopidogrel 75 mg tablet 75 mg PO DAILY 30 days #30 tabs 02/08/23 04/07/23 04/06/23 Rx escitalopram oxalate 20 mg tablet 20 mg PO DAILY 30 days #30 tabs 02/08/23 04/07/23 04/06/23 Rx glipizide 10 mg tablet, extended 10 mg PO BID 30 days #60 tabs 02/08/23 04/07/23 04/06/23 Rx release 24 hr nitroglycerin 0.4 mg sublingual See Rx Instructions .Route 02/08/23 04/07/23 04/07/23 Rx tablet .COMPLEX #25 tabs valsartan 80 mg tablet (Diovan) 80 mg PO DAILY #30 tabs 02/08/23 04/07/23 04/06/23 Rx aspirin 81 mg tablet,delayed 81 mg PO DAILY 04/07/23 04/07/23 04/06/23 History release clobetasol 0.05 % topical ointment See Rx Instructions .Route .COMPLEX 04/07/23 04/07/23 04/06/23 History ergocalciferol (vitamin D2) 1,250 1,250 mcg PO Q7D 04/07/23 04/07/23 04/02/23 History mcg (50,000 unit) capsule isosorbide mononitrate 30 mg 15 mg PO BID 04/07/23 04/07/23 04/06/23 History tablet,extended release 24 hr metformin 1,000 mg tablet 1,000 mg PO BID 04/07/23 04/07/23 04/06/23 History metoprolol succinate 100 mg 100 mg PO DAILY 04/07/23 04/07/23 04/06/23 History tablet,extended release 24 hr montelukast 10 mg tablet 10 mg PO DAILY 04/07/23 04/07/23 04/06/23 History oxybutynin chloride 15 mg 15 mg PO DAILY 04/07/23 04/07/23 04/06/23 History tablet,extended release 24 hr pantoprazole 40 mg tablet,delayed 40 mg PO DAILY 04/07/23 04/07/23 04/06/23 History release Allergies Allergy/AdvReac Type Severity Reaction Status Date / Time No Known Allergies Allergy Verified 04/07/23 05:03 Current Medications Generic Name Dose Route Start Last Admin Trade Name Freq PRN Reason Stop Dose Admin Aspirin 81 mg 04/07/23 09:45 04/08/23 09:46 Aspirin 81 Mg Ec Tablet PO 81 mg DAILY JENAE Administration Atorvastatin Calcium 40 mg 04/07/23 21:00 04/07/23 20:06 Atorvastatin 40 Mg Tablet PO 40 mg BEDTIME JENAE Administration Clopidogrel Bisulfate 75 mg 04/07/23 09:45 04/08/23 09:47 Clopidogrel 75 Mg Tablet PO 75 mg DAILY JENAE Administration Enoxaparin Sodium 40 mg 04/07/23 09:45 04/08/23 09:48 Enoxaparin 40 Mg/0.4 Ml Syringe SUBCUT 40 mg Q24H JENAE Administration Escitalopram Oxalate 20 mg 04/07/23 09:45 04/08/23 09:46 Escitalopram 10 Mg Tablet PO 20 mg DAILY JENAE Administration Insulin Human Lispro 0 unit 04/07/23 12:00 04/08/23 11:30 Insulin Lispro 100 Unit/1 Ml SUBCUT 12 unit WM&BEDTIME JENAE Administration Protocol Isosorbide Mononitrate 15 mg 04/07/23 09:45 04/08/23 09:46 Isosorbide Mononitrate Er 30 Mg Tablet PO 15 mg BID JENAE Administration Losartan Potassium 50 mg 04/08/23 09:00 04/08/23 09:47 Losartan 50 Mg Tablet PO 50 mg DAILY JENAE Administration Metoprolol Succinate 100 mg 04/07/23 09:45 04/08/23 09:47 Metoprolol Succinate Er (24 Hr) 100 Mg Tablet PO 100 mg DAILY JENAE Administration Montelukast Sodium 10 mg 04/07/23 09:45 04/08/23 09:47 Montelukast Sodium 10 Mg Tablet PO 10 mg DAILY JENAE Administration Nicotine 1 patch 04/07/23 09:55 04/08/23 09:47 Nicotine 21 Mg Patch TRANSDERMA 1 patch DAILY JENAE Administration Pantoprazole Sodium 40 mg 04/07/23 09:45 04/08/23 09:[address] 40 Mg Tablet PO 40 mg DAILY JENAE Administration PFSH Acute PFSH: Medical History Chest pain due to CAD Coronary artery disease stent to LAD and RCA 04/2016 RUSS [place] Depression Diabetes Essential hypertension GERD (gastroesophageal reflux disease) History of TIA (transient ischemic attack) Hyperlipidemia Myocardial infarction Smoking addiction Surgical History (Updated 04/07/23 @ 09:56 by Shaggy Mclaughlin MD) History of coronary angioplasty with insertion of stent 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 History of tonsillectomy History of tubal ligation Family History Father Hypertension CAD (coronary artery disease), Onset Age: 32 [place] and CABG Diabetes Brother CAD (coronary artery disease), Onset Age: 31 [place] Sister Family history of premature coronary artery disease Hypothyroidism Social History Smoking and tobacco status: current every day smoker cigarettes Packs smoked per day: 1 Years cigarettes smoked: 20 Second hand smoke exposure: Yes Alcohol intake: never Substance/Drug Use: never Adopted: No Lives independently: Yes Household members: spouse Housing: House Marital status: Number of children: 4 Number of grandchildren: 10 Highest education level completed: Master's Degree Current occupational status: employed Current gender identity: Female Vitals/I&O/Wt Last Vital Signs Temp 98.2 F 04/08/23 11:57 Pulse 70 04/08/23 11:57 Resp 18 04/08/23 11:57 BP 168/92 04/08/23 11:57 Pulse Ox 93 04/08/23 11:57 O2 Del Method Room Air 04/08/23 11:57 O2 Flow Rate 2 04/07/23 06:14 04/07/23 04/08/23 04/08/23 22:59 06:59 14:59 Intake Total 240 / 600 600 / 600 Balance 240 / 600 600 / 600 Weight last 48 hrs Weight 195 lb Physical Exam Narrative: GENERAL: In general she is comfortable and looks and feels well HEENT: Exam within normal limits. NECK: Supple without jugular vein distention. The carotid upstroke is normal without bruits. BACK: Exam normal. LUNGS: Clear. HEART: Regular rate and rhythm. ABDOMEN: Benign without organomegaly or tenderness. EXTREMITIES: No edema. NEUROLOGIC: Exam normal. SKIN: Unremarkable. Data 04/08/23 04:18 04/08/23 04:18 A&P Assessment and plan (1) Depression: Qualifiers: Depression Type: major depressive disorder Major depression recurrence: unspecified whether recurrent Active/Remission status: in partial remission Qualified Code(s): F32.4 - Major depressive disorder, single episode, in partial remission (2) Chest pain: (3) Hyperlipidemia associated with type 2 diabetes mellitus: (4) Coronary artery disease: Qualifiers: Associated angina: with unspecified form of angina Coronary Disease-Associated Artery/Lesion type: [place] artery [place] vs. transplanted heart: [place] heart Qualified Code(s): I25.119 - Atherosclerotic heart disease of [place] coronary artery with unspecified angina pectoris (5) Abnormal stress test: (6) Diabetes: (7) Essential hypertension: Plan I had a long discussion with the patient and her extended family which includes a daughter, sister and several others. I think this is a low risk situation given her EKGs are unchanged from previously, the sestamibi examination is actually slightly better than the one which was done before the last angiogram, the last angiogram showed nonobstructive disease, the echo was unremarkable and her troponins are completely negative and flat. She is in a low risk state. We talked at length about prioritizing her health issues, controlling her blood sugars and discontinuing her smoking habit. I warned her that the combination of diabetes and smoking is eventually lethal. My opinion is that she is stable to go home but I offered her angiography in case she is anxious and wants to know. She thought about it for quite some time and is decided to continue to treat this medically. I would agree with that assessment. I would send her home on the same medications that includes a long-acting nitrate, and H2 marlene, beta-marlene, Plavix, low-dose aspirin, statin and the angiotensin receptor marlene. Consult Attestations Medical Necessity Statement: She may be discharged safely. and High Time for a total of 60 minutes, includes reviewing past or interval history, examining/interviewing patient, counseling patient/family/other support, updating patient/family/other support, communicating with other healthcare providers and documenting encounter Diagnoses Depression F32.4 Depression Type: major depressive disorder Major depression recurrence: unspecified whether recurrent Active/Remission status: in partial remission Chest pain R07.9 Hyperlipidemia associated with type 2 diabetes mellitus E11.69; E78.5 Coronary artery disease I25.119 Associated angina: with unspecified form of angina Coronary Disease-Associated Artery/Lesion type: [place] artery [place] vs. transplanted heart: [place] heart Abnormal stress test R94.39 Diabetes E11.9 Essential hypertension I10
--- NOTE | 2023-04-08 14:12 | PM.DCS ---
Discharge Providers Date of Admission: 04/07/23 07:53 Date of Discharge: April 08, 2023 Attending Provider at Admission: Shaggy Mclaughlin MD Attending Provider at Discharge: Shaggy Mclaughlin MD Primary Care Provider: Shital Capps MD Diagnoses at Discharge Discharge Diagnosis (1) Depression: Status: Acute Qualifiers: Depression Type: major depressive disorder Major depression recurrence: unspecified whether recurrent Active/Remission status: in partial remission Qualified Code(s): F32.4 - Major depressive disorder, single episode, in partial remission (2) Chest pain: Status: Acute (3) Hyperlipidemia associated with type 2 diabetes mellitus: Status: Acute (4) Coronary artery disease: Status: Acute Qualifiers: Associated angina: with unspecified form of angina Coronary Disease-Associated Artery/Lesion type: [place] artery [place] vs. transplanted heart: [place] heart Qualified Code(s): I25.119 - Atherosclerotic heart disease of [place] coronary artery with unspecified angina pectoris (5) Abnormal stress test: Status: Acute (6) Diabetes: Status: Acute (7) Essential hypertension: Status: Acute Reason for Visit Reason for Visit: Chest pain Hospital Course Hospital Course Nalini is a 52-year-old white female who presented to the hospital with chest discomfort with some atypical features. Troponin was all negative. Echocardiogram demonstrated 1/4 diastolic dysfunction and minor valve regurgitation. EKG was essentially unchanged from previous. She was closely monitored in the hospital and had no significant arrhythmias. A nuclear stress test was done the following day and demonstrated some mild abnormality in the LAD territory. Cardiology evaluated the patient, reviewed her previous nuclear stress test, and after shared decision making it was thought the patient to be discharged home with close follow-up of symptoms in cardiology clinic. She also had significant snoring and sleep disordered breathing. It was thought she could follow-up with her primary and discuss a sleep study. Blood pressures were elevated during her hospital stay and her valsartan will be increased on discharge. I asked that she get a BMP in 2 weeks. She will bring her blood sugars to her primary care provider for adjustment of insulin products and other diabetic medication. I also discussed with her smoking cessation. She was given an opportunity to ask questions and agreed with the plan. Physical Exam Narrative: General exam no distress Neck is supple Cardiovascular regular rate and rhythm Lungs clear Abdomen is soft, nontender Extremities no cyanosis clubbing or edema Discharge Data Studies Completed and Pending Completed Studies During Hospitalization Category Date Time Status CTA chest [CT angio chest PE protcl [id number]] Stat Cat Scan 04/07/23 05:49 Completed Sestamibi Stress Test Request Routine Exams 04/08/23 07:00 Draft XR chest 1V portable [id number] Stat Exams 04/07/23 04:56 Completed NM russell perf SPECT r/s* [id number] Routine Nuc Med 04/08/23 08:00 Completed CV. echo complete* [id number] Routine Ultrasound 04/07/23 10:07 Completed Pending at discharge Category Date Time Status Sestamibi Stress Test Request Routine Exams 04/07/23 09:46 Stop Req Radiology Impressions Chest X-Ray 04/07/23 04:56 IMPRESSION: No acute findings. Chest CTA 04/07/23 05:49 IMPRESSION: 1. Negative for pulmonary embolism. 2. Nonspecific mosaic attenuation pattern of the lung parenchyma without significant differences from remote comparison imaging. Suspect chronic small airways disease. Laboratory Results WBC 7.5 10^3/uL (4.0-10.0) 04/08/23 04:18 RBC 4.84 10^6/uL (4.1-5.3) 04/08/23 04:18 Hgb 14.5 g/dL (11.5-15.3) 04/08/23 04:18 Hct 43.5 % (37.0-47.0) 04/08/23 04:18 MCV 89.9 fl (81-99) 04/08/23 04:18 MCH 30.0 pg (28.0-34.0) 04/08/23 04:18 MCHC 33.3 g/dL (30.0-36.0) 04/08/23 04:18 RDW 12.8 % (12.1-15.1) 04/08/23 04:18 Plt Count 181 10^3/cmm (130-400) 04/08/23 04:18 MPV 9.7 fL (7.4-10.4) 04/08/23 04:18 Neut % (Auto) 58.5 % 04/08/23 04:18 Lymph % (Auto) 30.6 % 04/08/23 04:18 [place] % (Auto) 6.3 % 04/08/23 04:18 Eos % (Auto) 3.9 % 04/08/23 04:18 Baso % (Auto) 0.4 % 04/08/23 04:18 Neut # (Auto) 4.38 10^3/uL (1.8-7.7) 04/08/23 04:18 Lymph # (Auto) 2.3 10^3/uL (0.8-4.8) 04/08/23 04:18 [place] # (Auto) 0.5 10^3/uL (0.2-0.9) 04/08/23 04:18 Eos # (Auto) 0.3 10^3/uL (0.0-0.8) 04/08/23 04:18 Baso # (Auto) 0.0 10^3/uL (0.0-0.1) 04/08/23 04:18 Nucleated RBC % (auto) 0 % 04/08/23 04:18 Nucleated RBCs # 0.0 /100WBC 04/08/23 04:18 D-Dimer 0.94 ug/mIFEU (0-0.59) H 04/07/23 05:06 Sodium 140 mmol/L (136-145) 04/08/23 04:18 Potassium 3.9 mmol/L (3.5-5.1) 04/08/23 04:18 Chloride 101 mmol/L (98-107) 04/08/23 04:18 Carbon Dioxide 26 mmol/L (22-29) 04/08/23 04:18 Anion Gap 16.9 (5-19) 04/08/23 04:18 BUN 11 mg/dL (6-20) 04/08/23 04:18 Creatinine 0.6 mg/dL (0.5-0.9) 04/08/23 04:18 GFR Calculation 105.0 mL/min (90-130) 04/08/23 04:18 Glucose 285 mg/dL (65-115) H 04/08/23 04:18 POC Glucose 378 mg/dL (70-110) H 04/08/23 11:15 Calculated Osmolality 300 mOsm/kg (285-295) H 04/08/23 04:18 Calcium 8.5 mg/dL (8.5-10.5) 04/08/23 04:18 Total Bilirubin 0.4 mg/dL (0.15-1.2) 04/08/23 04:18 AST 38 U/L (0-32) H 04/08/23 04:18 ALT 43 U/L (0-33) H 04/08/23 04:18 Alkaline Phosphatase 92 U/L (35-105) 04/08/23 04:18 Troponin T Baseline 9 ng/L (0-10) 04/07/23 05:06 Troponin T 120 Minute 9.64 ng/L (0-10) 04/07/23 06:52 Delta Troponin T 0.64 ABS# (0-10) 04/07/23 06:52 Troponin T Hi Sens 6Hr 9.72 ng/L (0-10) 04/07/23 11:03 Troponin T Hi Sens 6Hr Delta 0.72 ng/L (0-12) 04/07/23 11:03 Total Protein 6.2 g/dL (6.6-8.7) L 04/08/23 04:18 Albumin 3.9 g/dL (3.5-5.2) 04/08/23 04:18 Globulin 2.3 g/dL (1.3-4.6) 04/08/23 04:18 Hepatitis A IgM Ab Non-reactive (Nonreactive) 04/07/23 05:06 Hep Bs Antigen Non-reactive (Nonreactive) 04/07/23 05:06 Hep B Core IgM Ab Non-reactive (Nonreactive) 04/07/23 05:06 Hepatitis C Antibody Non-reactive (Nonreactive) 04/07/23 05:06 Vitals Last Vital Signs Temp 98.2 F 04/08/23 11:57 Pulse 70 04/08/23 11:57 Resp 18 04/08/23 11:57 BP 168/92 04/08/23 11:57 Pulse Ox 93 04/08/23 11:57 O2 Del Method Room Air 04/08/23 11:57 O2 Flow Rate 2 04/07/23 06:14 Discharge Plan Discharge Patient Disposition: Home Condition: Stable Prescriptions: New valsartan 160 mg tablet 160 mg PO DAILY Qty: 30 0RF Continued atorvastatin 40 mg tablet 40 mg PO .QHS 30 Days Qty: 30 3RF clopidogrel 75 mg tablet 75 mg PO DAILY 30 Days Qty: 30 3RF escitalopram oxalate 20 mg tablet 20 mg PO DAILY 30 Days Qty: 30 3RF glipizide 10 mg tablet extended release 24hr 10 mg PO BID 30 Days Qty: 60 3RF nitroglycerin 0.4 mg tablet, sublingual See Rx Instructions .ROUTE .COMPLEX Qty: 25 1RF Dose Instruction: DISSOLVE ONE TABLET UNDER THE TONGUE every FIVE minutes NEEDED FOR CHEST pain. *DO NOT EXCEED A TOTAL FO THREE DOSES IN 15 MINUTES* Rx Instructions: DISSOLVE ONE TABLET UNDER THE TONGUE every FIVE minutes NEEDED FOR CHEST pain. *DO NOT EXCEED A TOTAL FO THREE DOSES IN 15 MINUTES* oxybutynin chloride 15 mg tablet extended release 24hr 15 mg PO DAILY isosorbide mononitrate 30 mg tablet extended release 24 hr 15 mg PO BID metoprolol succinate 100 mg tablet extended release 24 hr 100 mg PO DAILY aspirin 81 mg tablet,delayed release (DR/EC) 81 mg PO DAILY pantoprazole 40 mg tablet,delayed release (DR/EC) 40 mg PO DAILY metformin 1,000 mg tablet 1,000 mg PO BID montelukast 10 mg tablet 10 mg PO DAILY ergocalciferol (vitamin D2) 1,250 mcg (50,000 unit) capsule 1,250 mcg PO Q7D Rx Instructions: TAKE ONE CAPSULE BY MOUTH EVERY SEVEN DAYS ON tuesday clobetasol 0.05 % ointment See Rx Instructions .ROUTE .COMPLEX Rx Instructions: 1 applic topically bid tuesday-tuesday off on weekends Discontinued valsartan [Diovan] 80 mg tablet 80 mg PO DAILY Qty: 30 3RF Discharge Orders: Discharge Order (Routine); Ordered 04/08/23 Ordered By: Shaggy Mclaughlin Referrals: Heather Jackson FNP [Nurse Practitioner] - 2 weeks Shital Capps MD [Primary Care Provider] - 4-7 days Discharge Diet: Cardiac and Diabetic Discharge Activity: Increase activity as tolerated Patient Instructions: Opioid Safety Activity Restrictions/Additional Instructions: Keep track of your blood sugars, and bring them to your first primary care provider appointment Note that your valsartan has been increased to 160 mg daily BMP in 2 weeks Please discuss with your primary care provider whether a sleep study is appropriate for your sleep disordered breathing. Follow-up with cardiology in 2 weeks Return for any concerns Discharge Attestations Time Spent in Discharge Care*: greater than 30 min Quality Metrics Clinical Quality Measures [ No reported AMI, CVA or VTE this stay] Coding Level of Care Code 45681 Total time (in minutes) for Discharge: 34 Diagnoses Depression F32.4 Depression Type: major depressive disorder Major depression recurrence: unspecified whether recurrent Active/Remission status: in partial remission Chest pain R07.9 Hyperlipidemia associated with type 2 diabetes mellitus E11.69; E78.5 Coronary artery disease I25.119 Associated angina: with unspecified form of angina Coronary Disease-Associated Artery/Lesion type: [place] artery [place] vs. transplanted heart: [place] heart Abnormal stress test R94.39 Diabetes E11.9 Essential hypertension I10
--- NOTE | 2023-04-08 14:56 | PC.NURSE ---
Patient verbalized understanding of discharge instructions, home medications, and follow up appointments. Discussed smoking cessation and monitoring blood sugars with patient and family and patient verbalized understanding. Patient declined wheelchair transport for discharge, and walked to main entrance with family.
[2023-04-08 15:00] VITALS: BP 168/92; PULSE 70; RESP 18; TEMP 36.8; O2SAT 93
== END 2023-04-08 15:03 | disposition home or self-care (01) ==
LOC: ER 07:53 → MEDSURG 08:39
PROVIDERS: Emergency Medicine; Admitting Provider Internal Medicine; Emergency Provider Emergency Medicine; PCP Family Medicine; Visit Provider Internal Medicine
DX: R07.9 Chest pain, unspecified (principal); E11.9 Type 2 diabetes mellitus without complications; E11.69 Type 2 diabetes mellitus with other specified complication; E78.5 Hyperlipidemia, unspecified; I10 Essential (primary) hypertension; I25.119 Atherosclerotic heart disease of native coronary artery with unspecified angina pectoris; I25.2 Old myocardial infarction; R94.39 Abnormal result of other cardiovascular function study; F32.4 Major depressive disorder, single episode, in partial remission; I08.3 Combined rheumatic disorders of mitral, aortic and tricuspid valves; E66.9 Obesity, unspecified; Z68.34 Body mass index [BMI] 34.0-34.9, adult; F17.210 Nicotine dependence, cigarettes, uncomplicated; Z79.82 Long term (current) use of aspirin; Z79.4 Long term (current) use of insulin; Z79.84 Long term (current) use of oral hypoglycemic drugs; Z79.899 Other long term (current) drug therapy; Z86.73 Personal history of transient ischemic attack (TIA), and cerebral infarction without residual deficits; Z95.5 Presence of coronary angioplasty implant and graft; Z82.49 Family history of ischemic heart disease and other diseases of the circulatory system
CPT/HCPCS: 36415; 36416; 71045; 71275; 78452; 80053; 80074; 82962; 84484; 85025; 85378; 93005; 93017; 93306; 96361; 96372; 96374; 96375; 99285; A9500; G0378; J1650; J1815; J2270; J2405; J2785; J3490; Q9967

== ENCOUNTER → 2023-06-14 16:30 | Outpatient (BNVA) | payer SELFPAY | PROVIDERS: PCP Family Medicine; Visit Provider Nurse Practitioner Family | DX: E11.69 Type 2 diabetes mellitus with other specified complication (principal); E78.5 Hyperlipidemia, unspecified; R61 Generalized hyperhidrosis; I10 Essential (primary) hypertension; E11.9 Type 2 diabetes mellitus without complications; I25.10 Atherosclerotic heart disease of native coronary artery without angina pectoris; F32.9 Major depressive disorder, single episode, unspecified; J30.2 Other seasonal allergic rhinitis; N32.81 Overactive bladder; K21.9 Gastro-esophageal reflux disease without esophagitis; F32.4 Major depressive disorder, single episode, in partial remission; I25.119 Atherosclerotic heart disease of native coronary artery with unspecified angina pectoris; R07.89 Other chest pain | CPT/HCPCS: 80053; 80061; 83036; 83721 ==

== ENCOUNTER 2023-10-20 17:55 | Emergency (ER) | payer OTHER, SELFPAY ==
[2023-10-20 17:56] VITALS: BP 184/123; PULSE 75; RESP 18; TEMP 37.1; O2SAT 94; BMI 34.3
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
[2023-10-20 18:20] VITALS: BP 182/115
[2023-10-20] MEDS: cloNIDine 0.1 mg Tablet PO (18:20)
[2023-10-20] MEDS: hyDROXYzine 25 mg Capsule PO (18:20)
[2023-10-20 18:22] VITALS: BP 182/115; PULSE 83; RESP 18; O2SAT 94
[2023-10-20 18:43] LABS: Basophils % 0.4 %; Eosinophils # 0.2 10^3/uL (0.0-0.8); Eosinophils % 2.4 %; Hematocrit 44.6 % (36-47); Lymphocytes # 3.5 10^3/uL (0.8-4.8); Lymphocytes % 36.8 %; Mean Corpuscular Hemoglobin 29.9 pg (27-33); Mean Corpuscular Volume 85.6 fl (85-98); Mean Platelet Volume 9.7 fL (7.4-10.4); Monocytes # 0.5 10^3/uL (0.2-0.9); Monocytes % 5.5 %; Neutrophils # 5.24 10^3/uL (1.8-7.7); Neutrophils % 54.6 %; Nucleated Red Blood Cells % 0 %; Platelet Count 207 10^3/cmm (157-399); Red Blood Count 5.21 10^6/uL (3.85-5.65); Red Cell Distribution Width 12.6 % (12.1-15.1)
[2023-10-20 18:57] VITALS: BP 190/105; PULSE 71; O2SAT 94
[2023-10-20 19:17] LABS: Alanine Aminotransferase 32 U/L (0-33); Albumin Level 4.3 g/dL (3.5-5.2); Alkaline Phosphatase 137 U/L (35-105); Anion Gap 16.9 (5-19); Aspartate Amino Transferase 28 U/L (0-32); Blood Urea Nitrogen 9 mg/dL (6-20); Calcium 8.8 mg/dL (8.5-10.5); Carbon Dioxide 23 mmol/L (22-29); Chloride 102 mmol/L (98-107); Globulin 2.7 g/dL (1.3-4.6); Glomerular Filtration Rate 129.1 mL/min (90-130); Glucose 277 mg/dL (65-115); NT Pro B Type Natriuretic Pept 187 pg/mL (0-125); Osmolality Calculated 295 mOsm/kg (285-295); Potassium 3.9 mmol/L (3.5-5.1); Sodium 138 mmol/L (136-145); Total Bilirubin 0.4 mg/dL (0.15-1.2)
[2023-10-20] MEDS: hyDRALAzine 20 mg/mL INJ 1 mL IVP (19:19)
== END 2023-10-20 19:44 | disposition home or self-care (01) ==
PROVIDERS: Emergency Provider Internal Medicine; PCP Family Medicine
DX: F41.9 Anxiety disorder, unspecified (principal); I10 Essential (primary) hypertension; Z79.02 Long term (current) use of antithrombotics/antiplatelets; Z79.82 Long term (current) use of aspirin; Z79.84 Long term (current) use of oral hypoglycemic drugs; E78.5 Hyperlipidemia, unspecified; I25.10 Atherosclerotic heart disease of native coronary artery without angina pectoris; Z86.73 Personal history of transient ischemic attack (TIA), and cerebral infarction without residual deficits; E11.9 Type 2 diabetes mellitus without complications; I25.2 Old myocardial infarction; Z95.5 Presence of coronary angioplasty implant and graft; F17.210 Nicotine dependence, cigarettes, uncomplicated
CPT/HCPCS: 36415; 80053; 83880; 85025; 96374; 99284; J0360

== ENCOUNTER 2024-01-12 08:56 | Emergency (ER) | payer OTHER, SELFPAY ==
[2024-01-12 08:57] VITALS: BP 200/94; PULSE 79; RESP 16; TEMP 36.6; O2SAT 98
--- NOTE | 2024-01-12 09:34 | CT_ITS ---
WS: [id number] CT ABDOMEN PELVIS TECHNIQUE: Contrast-enhanced CT of the abdomen and pelvis with coronal and sagittal reformatted image s. CLINICAL INFORMATION: abd pain COMPARISON: 2016 DLP: 752.[address] scans at [facility] use at least one of these dose optimization techniques: automated e xposure control; mA and/or kV adjustment per patient size (includes targeted exams where dose is matc hed to clinical indication); or iterative reconstruction. FINDINGS: Inflammatory changes surrounding the LEFT descending colon with colonic wall thickening and submucosal enhancement compatible with infectious or inflammatory colitis. This was also described i n 2016 but is more severe today. Transverse colon has a more normal appearance. Decompressed sigmoid colon. Celiac and SMA are patent. MYA is patent. Mild aortic and proximal mesenteric calcification. Diffuse fatty infiltration of the liver. Normal spleen. Normal pancreatic parenchymal enhancement. No rmal portal vein and splenic vein. Noncalcified nodule in the RIGHT lower lobe new from previous tila uring 8 mm. Recommend 3-month follow-up chest CT Mild aortic calcification. Celiac and SMA are patent. Slight anterolisthesis L5 on S1 with chronic bi lateral pars defects. Mild thickening of the LEFT adrenal gland. RIGHT adrenal gland is normal. Coco l renal parenchymal enhancement. No hydronephrosis. Bilateral renal cysts. Gallbladder is contracted. CT/CT abdomen pelvis w con* [id number] IMPRESSION: 1. Inflammatory changes involving the LEFT descending colon with wall thickeni ng and submucosal enhancement compatible with infectious or inflammatory coliti s. No evidence of bowel obstruction. 2. Diffuse fatty infiltration of the liver. 3. New 8 mm nodule RIGHT lower lobe. Recommend chest CT 3-month follow-up 4. Grade 1 anterolisthesis L5-S1 with bilateral pars defects. 5. No other acute findings. Notified Dk Duke DO at 01/12/2024 10:47 AM.
[2024-01-12 09:36] VITALS: BP 176/91; PULSE 83; RESP 16; O2SAT 95
--- NOTE | 2024-01-12 09:49 | W.ED.ABDPA2 ---
HPI - Abdominal Pain General: Chief Complaint: Abdominal Pain Stated Complaint: abd pain, rectal bleeding Time Seen by Provider: 01/12/24 08:57 Source: patient Mode of arrival: ambulatory History of Present Illness: 53-year-old female who presents to the emergency room with complaints of abdominal pain that began around 1 AM this morning watery stools and even some blood in the stool at times. She send previously had episodes of rectal bleeding. She has previously had a colonoscopy and states that she was told it was normal. She is on clopidogrel but not on any other anticoagulants. She localizes the pain to the left lower quadrant. MD elicited complaint: abdominal pain Onset (ago): hour(s) Location: Diffuse Severity: moderate Quality: cramping Exacerbating factors: eating Relieving factors: nothing Associated Symptoms: Denies anorexia, belching, bloating, change in bowel habits, change in stool character, chills, coffee ground emesis, constipation, GI cramping, diarrhea, dyspepsia, dysuria, excessive flatus, fever(s), heartburn, hematochezia, hematuria, hematemesis, fecal incontinence, loose stools, melena, nausea, poor appetite, syncope and vomiting Review of Systems Const: Denies: fever(s) or chills Card: Denies: syncope Resp: Denies: dyspnea GI: Denies: nausea, vomiting, hematemesis, coffee ground emesis, heartburn, diarrhea, constipation, bloating, GI cramping, belching, excessive flatus, fecal incontinence, change in bowel habits, change in stool character, hematochezia or melena : Denies: dysuria or hematuria Musc: Denies: neck pain or back pain Skin/Breast: Denies: rash PFSH ED PFSH: Medical History Hyperlipidemia Abnormal stress test Chest pain due to CAD Depression Coronary artery disease stent to LAD and RCA 04/2016 [place], [place] Essential hypertension Smoking addiction History of TIA (transient ischemic attack) Diabetes Myocardial infarction GERD (gastroesophageal reflux disease) Surgical History History of tubal ligation History of tonsillectomy 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 History of coronary angioplasty with insertion of stent Family History Father Hypertension CAD (coronary artery disease), Onset Age: 32 [place] and CABG Diabetes Brother CAD (coronary artery disease), Onset Age: 31 [place] Sister Family history of premature coronary artery disease Hypothyroidism Social History Smoking and tobacco/nicotine status: current every day tobacco/nicotine user cigarettes Packs smoked per day: 1 Years cigarettes smoked: 20 Second hand smoke exposure: Yes Alcohol intake: never Substance/Drug Use: never Adopted: No Lives independently: Yes Household members: spouse Housing: House Marital status: Number of children: 4 Number of grandchildren: 10 Highest education level completed: Master's Degree Current occupational status: employed Current gender identity: Female Physical Exam Const: COMMON NORMALS: no acute distress GENERAL APPEARANCE: cooperative and comfortable ORIENTATION/CONSCIOUSNESS: Yes awake, Yes oriented to person, Yes oriented to place and Yes oriented to time HENMT: COMMON NORMALS: normocephalic, atraumatic and hearing grossly normal bilaterally HEAD & SCALP: normocephalic and atraumatic Resp: COMMON NORMALS: normal respiratory effort, No retractions, No use of accessory muscles and clear to auscultation bilaterally AUSCULTATION: clear to auscultation bilaterally Cardio: COMMON NORMALS: regular rate, regular rhythm and No murmurs present (Cardio) RATE: regular rate RHYTHM: regular rhythm GI: COMMON NORMALS: No hepatosplenomegaly present AUSCULTATION: Yes normoactive bowel sounds PALPATION: Yes Tenderness to palpation present (GI), No Guarding due to palpation present (GI) and Yes No hepatosplenomegaly present Extremity: COMMON NORMALS: normal to inspection, capillary refill normal, no clubbing, cyanosis or edema, no calf tenderness and no pedal edema Neuro: SENSORIUM/ORIENTATION: Yes oriented to person, Yes oriented to place and Yes oriented to time Skin: COMMON NORMALS: no rashes or lesions noted GENERAL SKIN EXAM: no rashes or lesions noted Course Vital Signs: Vital signs: Vital Signs Temperature 97.9 F 01/12/24 08:57 Pulse Rate 76 01/12/24 12:25 Respiratory Rate 15 01/12/24 12:25 Blood Pressure 163/76 01/12/24 12:25 Pulse Oximetry 96 01/12/24 12:25 Oxygen Delivery Me thod Room Air 01/12/24 11:04 MDM - Abdominal Pain Medical Decision Making CT inflammatory changes of the descending colon. No abscess. Will discharge home on Cipro and Flagyl clear liquid diet advance as tolerated return if has worsening problems Medical Records I reviewed the patient's medical records. Lab Data I reviewed the patient's lab results. 01/12/24 04:55 01/12/24 04:55 Labs/Radiology: Radiology Impressions Abdomen/Pelvis CT 01/12/24 09:34 IMPRESSION: 1. Inflammatory changes involving the LEFT descending colon with wall thickening and submucosal enhancement compatible with infectious or inflammatory colitis. No evidence of bowel obstruction. 2. Diffuse fatty infiltration of the liver. 3. New 8 mm nodule RIGHT lower lobe. Recommend chest CT 3-month follow-up 4. Grade 1 anterolisthesis L5-S1 with bilateral pars defects. 5. No other acute findings. Notified Dk Duke DO at 01/12/2024 10:47 AM. Laboratory Results WBC 9.18 10^3/uL (3.29-11.43) 01/12/24 04:55 RBC 5.42 10^6/uL (3.85-5.65) 01/12/24 04:55 Hgb 16.50 g/dL (11.27-16.99) 01/12/24 04:55 Hct 47.9 % (36-47) H 01/12/24 04:55 MCV 88.4 fl (85-98) 01/12/24 04:55 MCH 30.4 pg (27-33) 01/12/24 04:55 MCHC 34.4 g/dL (30-55) 01/12/24 04:55 RDW 13.0 % (12.1-15.1) 01/12/24 04:55 Plt Count 201 10^3/cmm (157-399) 01/12/24 04:55 MPV 9.6 fL (7.4-10.4) 01/12/24 04:55 Neut % (Auto) 66.5 % 01/12/24 04:55 Lymph % (Auto) 26.9 % 01/12/24 04:55 [place] % (Auto) 4.5 % 01/12/24 04:55 Eos % (Auto) 1.6 % 01/12/24 04:55 Baso % (Auto) 0.3 % 01/12/24 04:55 Neut # (Auto) 6.10 10^3/uL (1.8-7.7) 01/12/24 04:55 Lymph # (Auto) 2.5 10^3/uL (0.8-4.8) 01/12/24 04:55 [place] # (Auto) 0.4 10^3/uL (0.2-0.9) 01/12/24 04:55 Eos # (Auto) 0.2 10^3/uL (0.0-0.8) 01/12/24 04:55 Baso # (Auto) 0.0 10^3/uL (0.0-0.1) 01/12/24 04:55 Nucleated RBC % (auto) 0 % 01/12/24 04:55 Nucleated RBCs # 0.0 /100WBC 01/12/24 04:55 Sodium 136 mmol/L (136-145) 01/12/24 04:55 Potassium 3.8 mmol/L (3.5-5.1) 01/12/24 04:55 Chloride 100 mmol/L (98-107) 01/12/24 04:55 Carbon Dioxide 23 mmol/L (22-29) 01/12/24 04:55 Anion Gap 16.8 (5-19) 01/12/24 04:55 BUN 11 mg/dL (6-20) 01/12/24 04:55 Creatinine 0.8 mg/dL (0.5-0.9) 01/12/24 04:55 GFR Calculation 75.0 mL/min (90-130) L 01/12/24 04:55 Glucose 379 mg/dL (65-115) H 01/12/24 04:55 Calculated Osmolality 297 mOsm/kg (285-295) H 01/12/24 04:55 Calcium 8.7 mg/dL (8.5-10.5) 01/12/24 04:55 Total Bilirubin 0.5 mg/dL (0.15-1.2) 01/12/24 04:55 AST 35 U/L (0-32) H 01/12/24 04:55 ALT 39 U/L (0-33) H 01/12/24 04:55 Alkaline Phosphatase 91 U/L (35-105) 01/12/24 04:55 Total Protein 7.0 g/dL (6.6-8.7) 01/12/24 04:55 Albumin 4.0 g/dL (3.5-5.2) 01/12/24 04:55 Globulin 3.0 g/dL (1.3-4.6) 01/12/24 04:55 Lipase 30 U/L (13-60) 01/12/24 04:55 Urine Color Yellow (Yellow) 01/12/24 10:35 Urine Appearance Clear (CLEAR) 01/12/24 10:35 Urine pH 5 (5-7) 01/12/24 10:35 Ur Specific [place] 1.015 (1.005-1.030) 01/12/24 10:35 Urine Protein Neg (Negative) 01/12/24 10:35 Urine Glucose (UA) 4+ (Normal) H 01/12/24 10:35 Urine Ketones Negative (Negative) 01/12/24 10:35 Urine Blood Neg (Negative) 01/12/24 10:35 Urine Nitrate Negative (Negative) 01/12/24 10:35 Urine Bilirubin Neg (Negative) 01/12/24 10:35 Urine Urobilinogen Norm mg/dL (Negative) 01/12/24 10:35 Ur Leukocyte Esterase Negative (Negative) 01/12/24 10:35 All radiology interpretation(s) finalized by discharge Discharge Plan Discharge Patient Disposition: Home Clinical Impression: Colitis Condition: Stable Prescriptions: New Cipro 500 mg tablet 500 mg PO BID Qty: 14 0RF metronidazole 500 mg tablet 500 mg PO BID 7 Days Qty: 14 0RF promethazine 25 mg tablet 25 mg PO Q6H PRN (Reason: nausea and vomiting) Qty: 20 0RF No Action montelukast 10 mg tablet 10 mg PO DAILY 90 Days Qty: 90 1RF nitroglycerin 0.4 mg tablet, sublingual See Rx Instructions .ROUTE .COMPLEX Qty: 25 1RF Dose Instruction: DISSOLVE ONE TABLET UNDER THE TONGUE every FIVE minutes NEEDED FOR CHEST pain. *DO NOT EXCEED A TOTAL FO THREE DOSES IN 15 MINUTES* Rx Instructions: DISSOLVE ONE TABLET UNDER THE TONGUE every FIVE minutes NEEDED FOR CHEST pain. *DO NOT EXCEED A TOTAL FO THREE DOSES IN 15 MINUTES* isosorbide mononitrate 30 mg tablet extended release 24 hr 15 mg PO BID 90 Days Qty: 180 1RF aspirin 81 mg tablet,delayed release (DR/EC) 81 mg PO DAILY Qty: 90 2RF clonidine HCl 0.1 mg tablet See Rx Instructions .ROUTE .COMPLEX Qty: 90 0RF Dose Instruction: TAKE ONE TABLET BY MOUTH THREE TIMES DAILY NEEDED FOR systolic blood pressure greater THAN 180 OR diastolic blood pressure greater THAN 100 Rx Instructions: TAKE ONE TABLET BY MOUTH THREE TIMES DAILY NEEDED FOR systolic blood pressure greater THAN 180 OR diastolic blood pressure greater THAN 100 clobetasol 0.05 % ointment See Rx Instructions .ROUTE .COMPLEX PRN (Reason: Skin Irritation) Rx Instructions: 1 applic topically bid tuesday-tuesday off on atorvastatin 40 mg tablet 40 mg PO BEDTIME oxybutynin chloride 15 mg tablet extended release 24hr 15 mg PO DAILY glipizide 10 mg tablet extended release 24hr 10 mg PO BID metoprolol succinate 100 mg tablet extended release 24 hr 100 mg PO DAILY clopidogrel 75 mg tablet 75 mg PO DAILY pantoprazole 40 mg tablet,delayed release (DR/EC) 40 mg PO DAILY metformin 1,000 mg tablet 1,000 mg PO BID ergocalciferol (vitamin D2) 1,250 mcg (50,000 unit) capsule 50,000 unit PO Q7D Rx Instructions: ON TUESDAY valsartan 160 mg tablet 160 mg PO DAILY escitalopram oxalate 20 mg tablet 20 mg PO DAILY Discharge Orders: Discharge ED (Routine); Ordered 01/12/24 Ordered By: Dk Duke Referrals: Shital Capps MD [Primary Care Provider] - Patient Instructions: Opioid Safety, Pain Management Activity Restrictions/Additional Instructions: Thank you for choosing [facility] for your healthcare needs today. Please realize this is an emergency room and that we are providing you with a medical screening exam and this may not be complete and all inclusive of all the testing and or work up that you may need to determine your ailment or severity of your illness. It is very important that you follow up as instructed or that you return to the Emergency Department should you have concerns or if your condition changes or worsens in any way. You are seen today for abdominal pain CT shows colitis on the left side your colon. Recommend you take the Cipro and Flagyl for 7 days. Clear liquid diet for the next 24 to 48 hours and advance as tolerated you can use promethazine as needed for nausea and vomiting. Follow-up with your primary care doctor within the next 10 to 14 days. Return if your symptoms worsen. 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
[2024-01-12 10:04] LABS: Basophils % 0.3 %; Eosinophils # 0.2 10^3/uL (0.0-0.8); Eosinophils % 1.6 %; Hematocrit 47.9 % (36-47); Lymphocytes # 2.5 10^3/uL (0.8-4.8); Lymphocytes % 26.9 %; Mean Corpuscular HGB Conc 34.4 g/dL (30-55); Mean Corpuscular Hemoglobin 30.4 pg (27-33); Mean Corpuscular Volume 88.4 fl (85-98); Mean Platelet Volume 9.6 fL (7.4-10.4); Monocytes # 0.4 10^3/uL (0.2-0.9); Monocytes % 4.5 %; Neutrophils % 66.5 %; Nucleated Red Blood Cells % 0 %; Platelet Count 201 10^3/cmm (157-399); Red Blood Count 5.42 10^6/uL (3.85-5.65); White Blood Count 9.18 10^3/uL (3.29-11.43)
[2024-01-12] MEDS: iohexol 350 mg/mL 500 mL Btl (per mL) IV (10:06)
[2024-01-12 10:18] LABS: Alanine Aminotransferase 39 U/L (0-33); Alkaline Phosphatase 91 U/L (35-105); Aspartate Amino Transferase 35 U/L (0-32); Blood Urea Nitrogen 11 mg/dL (6-20); Calcium 8.7 mg/dL (8.5-10.5); Carbon Dioxide 23 mmol/L (22-29); Chloride 100 mmol/L (98-107); Creatinine Clr Calc Pharmacy 88.7236; Glucose 379 mg/dL (65-115); Lipase 30 U/L (13-60); Osmolality Calculated 297 mOsm/kg (285-295); Sodium 136 mmol/L (136-145); Total Bilirubin 0.5 mg/dL (0.15-1.2)
[2024-01-12 10:21] LABS: Anion Gap 16.8 (5-19); Potassium 3.8 mmol/L (3.5-5.1)
[2024-01-12 10:48] LABS: Add Urine Microscopic? NO; Charge for UA Resulting for Rev
[2024-01-12 10:55] LABS: Bilirubin Urine Neg (Negative); Blood Urine Neg (Negative); Glucose Urine UA 4+ (Normal); Ketones Urine Negative (Negative); Leukocyte Esterase Urine Negative (Negative); Nitrate Urine Negative (Negative); Protein Urine Neg (Negative); Specific Gravity, Urine 1.015 (1.005-1.030); Urine Appearance Clear (CLEAR); Urine Color Yellow (Yellow); Urobilinogen Urine Norm (Negative); pH Urine 5 (5-7)
[2024-01-12 11:04] VITALS: PULSE 72; RESP 16; O2SAT 94
[2024-01-12 12:25] VITALS: BP 163/76; PULSE 76; RESP 15; O2SAT 96
== END 2024-01-12 12:26 | disposition home or self-care (01) ==
PROVIDERS: Emergency Provider Family Medicine; PCP Family Medicine
DX: K52.9 Noninfective gastroenteritis and colitis, unspecified (principal); F17.210 Nicotine dependence, cigarettes, uncomplicated; I10 Essential (primary) hypertension; Z79.899 Other long term (current) drug therapy
CPT/HCPCS: 74177; 80053; 81003; 83690; 85025; 99285; Q9967

== ENCOUNTER → 2024-02-13 09:04 | Outpatient (BNVA) | payer OTHER, SELFPAY | PROVIDERS: PCP Family Medicine; Visit Provider Nurse Practitioner Family | DX: F32.4 Major depressive disorder, single episode, in partial remission (principal); I10 Essential (primary) hypertension; E11.69 Type 2 diabetes mellitus with other specified complication; E78.5 Hyperlipidemia, unspecified; K21.9 Gastro-esophageal reflux disease without esophagitis | CPT/HCPCS: 80053; 80061; 83036; 85025 ==

== ENCOUNTER → 2024-07-18 08:44 | Outpatient (BNVA) | payer SELFPAY | PROVIDERS: PCP Nurse Practitioner Family; Visit Provider Nurse Practitioner Family | DX: M41.85 Other forms of scoliosis, thoracolumbar region (principal) | CPT/HCPCS: 71046 ==

== ENCOUNTER → 2024-10-22 08:36 | Outpatient (BNVA) | payer SELFPAY | PROVIDERS: PCP Clinical Nurse Specialist Adult Health; Visit Provider Clinical Nurse Specialist Adult Health | DX: Z13.6 Encounter for screening for cardiovascular disorders (principal) | CPT/HCPCS: 80061; 82947; 83036; 88175 ==

== ENCOUNTER → 2025-08-12 14:39 | Outpatient (BNVA) | payer SELFPAY | PROVIDERS: PCP Clinical Nurse Specialist Adult Health; Visit Provider Clinical Nurse Specialist Adult Health | DX: J02.9 Acute pharyngitis, unspecified (principal) | CPT/HCPCS: 87880 ==